=== PATIENT | female | born 1965 | race Caucasian/White ===

== ENCOUNTER 2022-12-16 14:25 | Emergency (ER) | payer OTHER, SELFPAY ==
[2022-12-16] VITALS (19 sets, daily range): BP systolic 118–140; BP diastolic 81–104; PULSE 82–111; RESP 12–26; TEMP 36.8; O2SAT 95–100; BMI 17.8
--- NOTE | 2022-12-16 14:41 | ECG_ITS ---
The [facility] Test Date: 2022-12-16 Pat Name: JEREMÍAS RIOS Department: Room: - Gender: Female [employer]icated [employer]: : 1965 Requested By: Order Number: [id number] Reading MD: KARIS CHUNG Measurements Intervals [place] Rate: 86 P: -30 OK: 124 QRS: 75 QRSD: 80 T: 58 QT: 384 QTc: 428 Interpretive Statements 1100 Sinus rhythm 9110 normal ECG No previous ECG available for comparison Electronically Signed On 12-17-2022 18:57:54 EDT by KARIS CHUNG
--- NOTE | 2022-12-16 14:41 | XR_ITS ---
The [address] [address] Patient Name: JEREMÍAS RIOS MRN: [id number] date: 1965 Sex: F Assigned Patient Location: ER Current Patient Location: ER Accession/Order Number: [id number] Exam Date: 12/16/2022 14:58 Report Date: 12/16/2022 15:35 At the request of: TIMO MENDEZ Procedure: XR chest 1V EXAMINATION: XR chest 1V HISTORY: Weakness COMPARISON: Portable chest 09/09/2021 TECHNIQUE: Portable chest FINDINGS: The lung parenchyma is free of consolidation or infiltrate. No pneumothorax or pleural effusion. The cardiac, mediastinal and hilar contours are normal. The visualized osseous structures exhibit no gross abnormality. XR/XR chest 1V IMPRESSION: No acute cardiopulmonary abnormality. Electronically authenticated by: REJI TAYLOR Date: 12/16/2022 15:35
--- NOTE | 2022-12-16 14:41 | CT_ITS ---
The [address] [address] Patient Name: JEREMÍAS RIOS MRN: [id number] date: 1965 Sex: F Assigned Patient Location: ER Current Patient Location: ER Accession/Order Number: [id number] Exam Date: 12/16/2022 15:00 Report Date: 12/16/2022 15:38 At the request of: TIMO MENDEZ Procedure: CT head/brain wo con CT head/brain wo con CLINICAL HISTORY: Seizure. COMPARISON: None Available. CT HEAD TECHNIQUE: Noncontrast axial CT images of the brain were obtained from the vertex through the skull base. Sagittal and coronal reconstructions. Bone and brain windows are provided for review. Dose reduction techniques were achieved by using automated exposure control and/or adjustment of mA and/or kV according to patient size and/or use of iterative reconstruction technique. CT HEAD FINDINGS: For patient age there is slightly greater than expected global volume loss especially frontal with slight ex vacuo prominence of the ventricles. No mass, midline shift, acute bleed, or extra-axial fluid collection. No CT evidence of acute large territorial infarction. Visualized paranasal sinuses are clear. Mastoid air cells are well aerated. The scalp, calvarium and orbital contents are free of disease. CT/CT head/brain wo con IMPRESSION: No acute process noncontrast head CT. Electronically authenticated by: HUYEN CHEW Date: 12/16/2022 15:38
--- NOTE | 2022-12-16 14:42 | ED_ITS ---
HPI - General Adult General Chief complaint: Urogenital-Female Stated complaint: POSS. UTI- MENON WHEN URINATING/BODY ACHES Time Seen by Provider: 12/16/22 14:36 Source: patient Mode of arrival: walk-in History of Present Illness HPI narrative: 57-year-old female presents for feeling bad. She stopped drinking alcohol two weeks ago and before that she was drinking a twelve pack of beer a day. Two weeks ago she states she had a withdrawal seizure, she's had them before. She hasn't had one since. No fever. She thinks she might have a urinary tract infection because she has dysuria. No gross hematuria. She's been tremorous and nauseous. Related Data Previous Rx's Medication Instructions Recorded cephalexin 500 mg capsule 500 mg PO TID 7 days #21 caps 12/16/22 lorazepam 1 mg tablet (Ativan) 1 mg PO Q8H PRN alcohol withdrawal 12/16/22 #20 tabs Allergies Allergy/AdvReac Type Severity Reaction Status Date / Time No Known Drug Allergies Allergy Verified 12/16/22 14:33 Review of Systems ROS Narrative A ten point review of systems is negative except as noted above. Exam Narrative Exam Narrative: Nurses note and vital signs reviewed and patient is not hypoxic. General: The patient appears in no apparent distress. Patient is resting comfortably on cart. Skin: Warm, dry, no pallor noted. There is no rash noted. Head: Normocephalic, atraumatic Eye: Normal conjunctiva, no drainage Ears, Nose, Mouth, and Throat: oral mucosa is moist. Nares patent. Cardiovascular: Regular Rate and Rhythm Respiratory: Patient is in no distress, no accessory muscle use, lungs are clear to auscultation, no wheezing, rales or rhonchi Back: non-tender GI: soft and nontender, no masses Musculoskeletal: The patient has no evidence of calf tenderness, no pitting edema, symmetrical pulses noted bilaterally Neurological: A&O x4, normal speech; she is tremorous Psychiatric: Cooperative Constitutional Vital Signs, click to edit/add: Last Vital Signs Temp 98.2 F 12/16/22 14:29 Pulse 90 12/16/22 16:00 Resp 20 12/16/22 16:00 BP 127/83 12/16/22 16:06 Pulse Ox 97 12/16/22 16:00 O2 Del Method Room Air 12/16/22 14:29 Course Vital Signs Vital signs: Vital Signs Temperature 98.2 F 12/16/22 14:29 Pulse Rate 111 H 12/16/22 14:29 Respiratory Rate 16 12/16/22 14:29 Blood Pressure 129/104 H 12/16/22 14:29 Pulse Oximetry 99 12/16/22 14:29 Oxygen Delivery Method Room Air 12/16/22 14:29 Temperature 98.2 F 12/16/22 14:29 Pulse Rate 90 12/16/22 16:00 Respiratory Rate 20 12/16/22 16:00 Blood Pressure 127/83 12/16/22 16:06 Pulse Oximetry 97 12/16/22 16:00 Oxygen Delivery Method Room Air 12/16/22 14:29 Medical Decision Making MDM Narrative Medical decision making narrative: The patient has mild alcohol withdrawal. She's been tremorous and was given IV Ativan and fluids and feels much better now. Her tremors are no longer present. She was also found to have mild urinary tract infection. Culture ordered as well as IV Rocephin and she'll be discharged home on Keflex. Findings are discussed thoroughly with the patient. At this point she does not require admission the hospital. Differential Diagnosis Differential Diagnosis: I'll call withdrawal, urinary tract infection, pyelonephritis, delirium Lab Data Lab results reviewed: Yes I reviewed the patient's lab results Labs: Lab Results 12/16/22 Range/Units 14:38 WBC 5.8 (4.0-11.0) 10^3/uL RBC 3.73 L (4.20-5.40) 10^6/uL Hgb 13.2 (12.0-16.0) g/dL Hct 39.0 (36.0-48.0) % MCV 104.6 H (81.0-99.0) fL MCH 35.4 H (26.7-34.0) pg MCHC 33.8 (29.9-35.2) g/dL RDW 13.1 (11.0-15.0) % Plt Count 159 (150-450) 10^3/uL MPV 11.2 (9.5-13.5) fL Neut % (Auto) 49.4 (43.0-75.0) % Lymph % (Auto) 32.4 (20.5-60.0) % [place] % (Auto) 15.9 H (1.7-12.0) % Eos % (Auto) 1.0 (0.9-7.0) % Baso % (Auto) 1.0 (0.2-2.0) % Neut # (Auto) 2.9 (1.4-6.5) 10^3/uL Lymph # (Auto) 1.9 (1.2-3.8) 10^3/uL [place] # (Auto) 0.9 H (0.3-0.8) 10^3/uL Eos # (Auto) 0.1 (0.0-0.7) 10^3/uL Baso # (Auto) 0.1 (0.0-0.1) 10^3/uL Abs Immat Gran (auto) 0.02 (0.00-0.03) 10^3/uL Imm/Tot Granulo (auto) 0.3 (0.0-0.5) % Sodium 136 (136-145) mmol/L Potassium 3.1 L (3.5-5.1) mmol/L Chloride 100 (98-107) mmol/L Carbon Dioxide 28.1 (21.0-32.0) mmol/L Anion Gap 11.0 BUN 3.0 L (7.0-18.0) mg/dL Creatinine 0.73 (0.55-1.02) mg/dL Est GFR ( Amer) >60 (>=60) Est GFR (Non-Af Amer) >60 (>=60) BUN/Creatinine Ratio 4.1 Glucose 104 (74-106) mg/dL Calcium 8.9 (8.5-10.1) mg/dL Total Bilirubin 1.2 H (0.2-1.0) mg/dL Direct Bilirubin 0.5 H (0.0-0.2) mg/dL AST 57 H (15-37) U/L ALT 58 (14-59) U/L Alkaline Phosphatase 104 (46-116) U/L Total Protein 7.2 (6.4-8.2) g/dL Albumin 3.4 (3.4-5.0) g/dL Globulin 3.8 g/dL Albumin/Globulin Ratio 0.9 Urine Color [place] A (YELLOW) Urine Clarity Slightly cloudy A (CLEAR) Urine pH Color interference A (5.0-9.0) Ur Specific [place] <=1.005 A (1.005-1.025) Urine Protein Color interference A (NEG/TRACE) mg/dL Urine Glucose (UA) Color interference A (NEGATIVE) mg/dL Urine Ketones Color interference A (NEGATIVE) mg/dL Urine Occult Blood Color interference A (NEGATIVE) Urine Nitrite Color interference A (NEGATIVE) Urine Bilirubin Color interference A (NEGATIVE) Urine Urobilinogen Color interference A (0.2-1.0) EU/dL Ur Leukocyte Esterase Color interference A (NEGATIVE) Urine RBC 2-5 A (0-2) #/HPF Urine WBC 10-20 A (NONE SEEN) #/HPF Ur Squamous Epith Cells None seen (NONE/RARE) #/LPF Urine Crystals None seen (None Seen) #/HPF Urine Bacteria Trace A (NONE SEEN) #/HPF Urine Casts None seen (NONE SEEN) #/LPF Urine Mucus None seen (NONE SEEN) Ur Culture Indicated? Yes Ethanol Quant <3 mg/dL Imaging Data CT scan - head: Radiologist's impression: Procedure: CT head/brain wo con CT head/brain wo con CLINICAL HISTORY: Seizure. COMPARISON: None Available. CT HEAD TECHNIQUE: Noncontrast axial CT images of the brain were obtained from the vertex through the skull base. Sagittal and coronal reconstructions. Bone and brain windows are provided for review. Dose reduction techniques were achieved by using automated exposure control and/or adjustment of mA and/or kV according to patient size and/or use of iterative reconstruction technique. CT HEAD FINDINGS: For patient age there is slightly greater than expected global volume loss especially frontal with slight ex vacuo prominence of the ventricles. No mass, midline shift, acute bleed, or extra-axial fluid collection. No CT evidence of acute large territorial infarction. Visualized paranasal sinuses are clear. Mastoid air cells are well aerated. The scalp, calvarium and orbital contents are free of disease. IMPRESSION: No acute process noncontrast head CT. Electronically authenticated by: HYUEN CHEW Date: 12/16/2022 15:38 ECG Data Attestation: I personally reviewed and interpreted this ECG as follows: (EKG on my interpretation shows normal sinus rhythm with a rate of 86.) Discharge Plan Discharge Chief Complaint: Urogenital-Female Clinical Impression: Urinary tract infection, Alcohol withdrawal Patient Disposition: Home, Self-Care Time of Disposition Decision: 16:37 Condition: Good Mode of Transportation: Private Vehicle Prescriptions / Home Meds: New cephalexin 500 mg capsule 500 mg PO TID 7 Days Qty: 21 0RF lorazepam [Ativan] 1 mg tablet 1 mg PO Q8H PRN (Reason: alcohol withdrawal) Qty: 20 0RF Instructions: Urinary Tract Infection in Women (ED), Alcohol Withdrawal (ED) Stand Alone Forms: Portal Instructions Referrals: Physician,Non-Staff, MD [Primary Care Provider] - 1 week
[2022-12-16 15:01] LABS: Basophils Absolute Auto 0.1 10^3/uL (0.0-0.1); Eosinophils Absolute Auto 0.1 10^3/uL (0.0-0.7); Hemoglobin 13.2 g/dL (12.0-16.0); Immature Granulocytes Abs Auto 0.02 10^3/uL (0.00-0.03); Immature Granulocytes Pct Auto 0.3 % (0.0-0.5); Lymphocytes Absolute Auto 1.9 10^3/uL (1.2-3.8); Lymphocytes Percent Auto 32.4 % (20.5-60.0); Mean Corpuscular HGB Conc 33.8 g/dL (29.9-35.2); Mean Corpuscular Hemoglobin 35.4 pg (26.7-34.0); Mean Corpuscular Volume 104.6 fL (81.0-99.0); Mean Platelet Volume 11.2 fL (9.5-13.5); Monocytes Absolute Auto 0.9 10^3/uL (0.3-0.8); Monocytes Percent Auto 15.9 % (1.7-12.0); Neutrophils Absolute Auto 2.9 10^3/uL (1.4-6.5); Neutrophils Percent Auto 49.4 % (43.0-75.0); Platelet Count 159 10^3/uL (150-450); Red Blood Count 3.73 10^6/uL (4.20-5.40); Red Cell Distribution Width 13.1 % (11.0-15.0); White Blood Count 5.8 10^3/uL (4.0-11.0)
[2022-12-16 15:10] LABS: BUN Creatinine Ratio 4.1; Calcium 8.9 mg/dL (8.5-10.1); Carbon Dioxide 28.1 mmol/L (21.0-32.0); Chloride 100 mmol/L (98-107); Estimated GFR (African America >60 (>=60); Estimated GFR (Non-African Ame >60 (>=60); Glucose 104 mg/dL (74-106); Potassium 3.1 mmol/L (3.5-5.1); Sodium 136 mmol/L (136-145)
[2022-12-16] MEDS: LORAZEPAM 2 MG/ML 1 ML VIAL 1 MG IV (15:11)
[2022-12-16 15:19] LABS: Alanine Aminotransferase 58 U/L (14-59); Albumin Globulin Ratio 0.9; Albumin Level 3.4 g/dL (3.4-5.0); Alkaline Phosphatase 104 U/L (46-116); Aspartate Amino Transferase 57 U/L (15-37); Bilirubin Direct 0.5 mg/dL (0.0-0.2); Bilirubin Total 1.2 mg/dL (0.2-1.0); Ethanol <3 mg/dL; Globulin 3.8 g/dL; Total Protein 7.2 g/dL (6.4-8.2)
[2022-12-16 15:20] LABS: Clarity Urine SLIGHTLY CLOUDY (CLEAR); Color Urine ORANGE (YELLOW)
[2022-12-16 15:21] LABS: Bacteria Urine TRACE #/HPF (NONE SEEN); Bilirubin Urine COLOR INTERFERENCE (NEGATIVE); Blood Urine COLOR INTERFERENCE (NEGATIVE); Cast Seen? NONE SEEN #/LPF (NONE SEEN); Crystals Seen? None Seen #/HPF (None Seen); Glucose Urine UA COLOR INTERFERENCE mg/dL (NEGATIVE); Ketones Urine COLOR INTERFERENCE mg/dL (NEGATIVE); Leukocyte Esterase Urine COLOR INTERFERENCE (NEGATIVE); Mucus Urine NONE SEEN (NONE SEEN); Nitrite Urine COLOR INTERFERENCE (NEGATIVE); Protein Urine COLOR INTERFERENCE mg/dL (NEG/TRACE); Specific Gravity Urine <=1.005 (1.005-1.025); Squamous Epithelial Cell Urine NONE SEEN #/LPF (NONE/RARE); Urobilinogen Urine COLOR INTERFERENCE EU/dL (0.2-1.0); pH Urine COLOR INTERFERENCE (5.0-9.0)
[2022-12-16 15:22] LABS: Urine Culture Indicated YES
[2022-12-16] MEDS: CEFTRIAXONE 1,000 MG in 0.9 % SODIUM CHLORIDE 50 ML 100 MG IV (16:37)
== END 2022-12-16 17:18 | disposition home or self-care (01) ==
PROVIDERS: Emergency Provider Emergency Medicine
DX: N39.0 Urinary tract infection, site not specified (principal); F10.239 Alcohol dependence with withdrawal, unspecified
CPT/HCPCS: 36415; 70450; 71045; 80048; 80076; 80320; 81001; 85025; 87086; 87150; 87186; 93005; 96365; 96375; 99285

== ENCOUNTER 2023-01-22 21:04 | Outpatient (REF) | payer OTHER, SELFPAY ==
[2023-01-26 13:09] LABS: Age Gdln ACOG Testing Note (.); HPV Aptima Negative (Negative); IGP, Aptima HPV, rfx 16/18,45 Note (.)
== END 2023-01-22 21:05 | disposition home or self-care (01) ==
LOC: LAB 21:04
PROVIDERS: PCP Nurse Practitioner Family; Visit Provider Obstetrics & Gynecology
DX: Z01.419 Encounter for gynecological examination (general) (routine) without abnormal findings (principal)
CPT/HCPCS: 87624; G0145

== ENCOUNTER 2023-01-23 06:54 | Outpatient (OUT) | payer OTHER, SELFPAY ==
[2023-01-23 07:15] LABS: Bilirubin Urine SMALL (NEGATIVE); Blood Urine TRACE-L (NEGATIVE); Color Urine YELLOW (YELLOW); Glucose Urine UA NEGATIVE (NEGATIVE); Ketones Urine TRACE mg/dL (NEGATIVE); Leukocyte Esterase Urine TRACE (NEGATIVE); Nitrite Urine NEGATIVE (NEGATIVE); Protein Urine NEGATIVE (NEG/TRACE); Specific Gravity Urine >=1.030 (1.005-1.025); pH Urine 5.5 (5.0-9.0)
[2023-01-23 07:16] LABS: Clarity Urine SLIGHTLY CLOUDY (CLEAR)
[2023-01-23 07:19] LABS: Basophils Percent Auto 0.7 % (0.2-2.0); Eosinophils Absolute Auto 0.2 10^3/uL (0.0-0.7); Eosinophils Percent Auto 3.2 % (0.9-7.0); Hematocrit 39.6 % (36.0-48.0); Hemoglobin 13.4 g/dL (12.0-16.0); Immature Granulocytes Abs Auto 0.01 10^3/uL (0.00-0.03); Immature Granulocytes Pct Auto 0.2 % (0.0-0.5); Lymphocytes Absolute Auto 2.1 10^3/uL (1.2-3.8); Lymphocytes Percent Auto 35.6 % (20.5-60.0); Mean Corpuscular HGB Conc 33.8 g/dL (29.9-35.2); Mean Corpuscular Hemoglobin 34.7 pg (26.7-34.0); Mean Corpuscular Volume 102.6 fL (81.0-99.0); Mean Platelet Volume 9.7 fL (9.5-13.5); Monocytes Absolute Auto 0.5 10^3/uL (0.3-0.8); Monocytes Percent Auto 9.1 % (1.7-12.0); Neutrophils Percent Auto 51.2 % (43.0-75.0); Platelet Count 135 10^3/uL (150-450); Red Blood Count 3.86 10^6/uL (4.20-5.40); Red Cell Distribution Width 13.8 % (11.0-15.0); White Blood Count 5.9 10^3/uL (4.0-11.0)
[2023-01-23 07:22] LABS: Bacteria Urine SMALL #/HPF (NONE SEEN); Cast Seen? NONE SEEN #/LPF (NONE SEEN); Crystals Seen? None Seen #/HPF (None Seen); Mucus Urine NONE SEEN (NONE SEEN); RBC Urine 0-2 #/HPF (0-2); Squamous Epithelial Cell Urine FEW #/LPF (NONE/RARE); WBC Urine 0-2 #/HPF (NONE SEEN)
[2023-01-23 07:50] LABS: Estimated Average Glucose 77 mg/dL; Glycohemoglobin A1C 4.3 % (4.5-6.2)
[2023-01-23 08:02] LABS: Alanine Aminotransferase 38 U/L (14-59); Albumin Globulin Ratio 0.8; Albumin Level 3.7 g/dL (3.4-5.0); Alkaline Phosphatase 132 U/L (46-116); Aspartate Amino Transferase 44 U/L (15-37); BUN Creatinine Ratio 9.5; Bilirubin Total 0.6 mg/dL (0.2-1.0); Calcium 9.6 mg/dL (8.5-10.1); Carbon Dioxide 27.9 mmol/L (21.0-32.0); Chloride 105 mmol/L (98-107); Chol HDL Ratio 3.4; Cholesterol 185 mg/dL (<=200); Estimated GFR (African America >60 (>=60); Estimated GFR (Non-African Ame >60 (>=60); Free T3 3.13 pg/mL (2.18-3.98); Globulin 4.7 g/dL; Glucose 122 mg/dL (74-106); HDL Cholesterol 55 mg/dL (40-60); Potassium 3.9 mmol/L (3.5-5.1); Sodium 141 mmol/L (136-145); Thyroid Stimulating Hormone 4.728 uIU/mL (0.358-3.740); Total Protein 8.4 g/dL (6.4-8.2); Triglycerides 90 mg/dL (<=150)
--- NOTE | 2023-01-23 17:43 | P.STRESS_ITS ---
Stress Test Stress Test Allergies Allergy/AdvReac Type Severity Reaction Status Date / Time No Known Drug Allergies Allergy Verified 12/16/22 14:33 Requesting physician: LOYD RANDOLPH Procedure: Exercise stress test General Information: Reason for Stress Test: Family history of ischemic heart disease Cardiac History and Risk Factors: 40 pack-year smoking. Father and brothers had MIs. Resting 12 - Lead Electrocardiogram: Rate & rhythm: Normal sinus at a rate of 99. [place]: Normal T-waves: Normal ST-segments: Normal Stress Test: Protocol: Facundo protocol was followed. Exercise capacity: Fair exercise capacity. Total exercise time of 4 minutes 45 seconds reached Facundo stage 2 at 2.5MPH, 12% grade, & 7 METs. Blood pressure: Initial: 108/68, Maximum: 140/88, Recovery: 120/74 Rate & rhythm: Patient remained in sinus rhythm during the exercise and recovery portions of the study.? The maximum heart rate was 157, which was 95% of the maximum predicted heart rate 165. Occasional PVCs were noted. ST-segments & T-waves: There were no T-wave changes and no ST-segment changes when compared to the baseline EKG. Patient response/symptoms: Patient complained of dyspnea which is not abnormal for her. Interpretation: Normal exercise stress test. No EKG abnormalities identified. Rhoades Treadmill score is 4.8, which is a moderate risk. Clinical correlation required.
[2023-01-24 10:11] LABS: Insulin 13.7 uIU/mL (2.6-24.9)
== END 2023-01-23 06:55 | disposition home or self-care (01) ==
LOC: CARD 06:54
PROVIDERS: PCP Nurse Practitioner Family; Visit Provider Nurse Practitioner Family
DX: R30.0 Dysuria (principal); Z82.49 Family history of ischemic heart disease and other diseases of the circulatory system; R10.13 Epigastric pain
CPT/HCPCS: 36415; 80053; 80061; 81001; 82306; 83036; 83525; 83540; 84436; 84443; 84481; 85025; 87086; 93017

== ENCOUNTER 2023-02-08 13:09 | Outpatient (OUT) | payer OTHER, SELFPAY ==
--- NOTE | 2023-02-08 | MM_ITS ---
Patient Name: JEREMÍAS RIOS MR#: [id number] : 1965 Exam Date: 02/08/2023 Ordering Doctor: DR Paul Johnson . RADIOLOGY REPORT PROCEDURE: MM TOMOSYNTHESIS SCREENING BI COMPARISON: None. INDICATIONS: breast cancer screening by mammogram z 12.31 Calculator Name NCI Breast Cancer Risk Assessment Tool 5 Year Breast Cancer Risk 0.80% Lifetime Breast Cancer Risk 5.50% Personal Breast Cancer No Personal Ovarian Cancer No Treatments None Family Cancers Mother with uterus cancer at age 45. LOCATION: The [facility] BREAST COMPOSITION: Scattered areas fibroglandular density. FINDINGS: DIAGNOSTIC CATEGORY 0--INCOMPLETE: NEED ADDITIONAL IMAGING EVALUATION. Scattered benign-appearing calcifications are present. Scattered benign-appearing lymph nodes are present. Scattered benign-appearing nodules are present. RIGHT BREAST: Partially circumscribed lobular 7.7 mm nodule 6 o'clock position, mid to posterior breast. Spot imaging and ultrasound follow-up recommended LEFT BREAST: Well-circumscribed round 4.7 mm nodule lower inner quadrant, anterior breast. Spot imaging and ultrasound follow-up recommended. RECOMMENDATIONS: ADDITIONAL MAMMOGRAPHIC VIEWS REQUIRED: BILATERAL BREASTS - spot compression ULTRASOUND: BILATERAL BREASTS PLEASE NOTE: A NORMAL MAMMOGRAM DOES NOT EXCLUDE THE POSSIBILITY OF BREAST CANCER. A CLINICALLY SUSPICIOUS PALPABLE LUMP SHOULD BE BIOPSIED. Dictated by: Manuelito Alford MD on 02/09/2023 at 08:34 Approved by: Manuelito Alford MD on 02/09/2023 at 08:36
--- NOTE | 2023-02-08 | XR_ITS ---
The [address] [address] Patient Name: JEREMÍAS RIOS MRN: [id number] date: 1965 Sex: F Assigned Patient Location: MAMMO Current Patient Location: LAB Accession/Order Number: [id number] Exam Date: 02/08/2023 13:30 Report Date: 02/08/2023 15:58 At the request of: HAFSA FLOR Procedure: XR DEXA axial skeleton EXAMINATION: XR DEXA axial skeleton, 02/08/2023 1:30 PM EST HISTORY: postmenopausal state z78.0 COMPARISON: None. TECHNIQUE: Dual-energy X-ray absorptiometry (DEXA) bone density study performed for the axial skeleton. HISTORY: postmenopausal state z78.0 FINDINGS: Bone mineral density AP spine L1-L4 measures 1.215 g/sq cm. T score 0.3. WHO classification: Normal. Lowest bone mineral density right femoral neck measures 0.835 g/sq cm. T score -1.5. WHO classification: Osteopenia XR/XR DEXA axial skeleton IMPRESSION: Osteopenia. Moderate fracture risk Electronically authenticated by: REJI GOSS Date: 02/08/2023 15:58
== END 2023-02-08 13:10 | disposition home or self-care (01) ==
LOC: MAMMO 13:09
PROVIDERS: PCP Nurse Practitioner Family; Visit Provider Obstetrics & Gynecology
DX: Z78.0 Asymptomatic menopausal state (principal); Z12.31 Encounter for screening mammogram for malignant neoplasm of breast; Z80.8 Family history of malignant neoplasm of other organs or systems; N63.15 Unspecified lump in the right breast, overlapping quadrants; N63.24 Unspecified lump in the left breast, lower inner quadrant; M85.80 Other specified disorders of bone density and structure, unspecified site
CPT/HCPCS: 77063; 77067; 77080

== ENCOUNTER 2023-02-08 13:49 | Outpatient (OUT) | payer OTHER, SELFPAY ==
[2023-02-08 14:17] LABS: Basophils Percent Auto 0.5 % (0.2-2.0); Eosinophils Absolute Auto 0.1 10^3/uL (0.0-0.7); Eosinophils Percent Auto 1.6 % (0.9-7.0); Hematocrit 38.3 % (36.0-48.0); Hemoglobin 12.3 g/dL (12.0-16.0); Immature Granulocytes Abs Auto 0.01 10^3/uL (0.00-0.03); Immature Granulocytes Pct Auto 0.2 % (0.0-0.5); Lymphocytes Absolute Auto 1.7 10^3/uL (1.2-3.8); Lymphocytes Percent Auto 29.9 % (20.5-60.0); Mean Corpuscular HGB Conc 32.1 g/dL (29.9-35.2); Mean Corpuscular Hemoglobin 33.2 pg (26.7-34.0); Mean Corpuscular Volume 103.2 fL (81.0-99.0); Monocytes Absolute Auto 0.6 10^3/uL (0.3-0.8); Monocytes Percent Auto 9.8 % (1.7-12.0); Neutrophils Absolute Auto 3.3 10^3/uL (1.4-6.5); Platelet Count 111 10^3/uL (150-450); Red Blood Count 3.71 10^6/uL (4.20-5.40); Red Cell Distribution Width 13.9 % (11.0-15.0); White Blood Count 5.7 10^3/uL (4.0-11.0)
[2023-02-08 14:37] LABS: Free T4 1.03 ng/dL (0.76-1.46)
[2023-02-08 14:41] LABS: Thyroid Stimulating Hormone 3.594 uIU/mL (0.358-3.740)
== END 2023-02-08 13:50 | disposition home or self-care (01) ==
LOC: LAB 13:50
PROVIDERS: PCP Nurse Practitioner Family; Visit Provider Nurse Practitioner Family
DX: R79.89 Other specified abnormal findings of blood chemistry (principal); D69.6 Thrombocytopenia, unspecified; Z78.0 Asymptomatic menopausal state; Z12.31 Encounter for screening mammogram for malignant neoplasm of breast; Z80.8 Family history of malignant neoplasm of other organs or systems; M85.80 Other specified disorders of bone density and structure, unspecified site; N63.24 Unspecified lump in the left breast, lower inner quadrant; N63.15 Unspecified lump in the right breast, overlapping quadrants
CPT/HCPCS: 36415; 77063; 77067; 77080; 84439; 84443; 85025

== ENCOUNTER 2023-03-20 12:43 | Outpatient (OUT) | payer OTHER, SELFPAY ==
[2023-03-20 14:50] LABS: Basophils Percent Auto 0.6 % (0.2-2.0); Eosinophils Absolute Auto 0.1 10^3/uL (0.0-0.7); Eosinophils Percent Auto 1.1 % (0.9-7.0); Hematocrit 40.3 % (36.0-48.0); Hemoglobin 13.2 g/dL (12.0-16.0); Immature Granulocytes Abs Auto 0.01 10^3/uL (0.00-0.03); Immature Granulocytes Pct Auto 0.2 % (0.0-0.5); Lymphocytes Absolute Auto 1.5 10^3/uL (1.2-3.8); Lymphocytes Percent Auto 31.3 % (20.5-60.0); Mean Corpuscular HGB Conc 32.8 g/dL (29.9-35.2); Mean Corpuscular Hemoglobin 33.1 pg (26.7-34.0); Mean Platelet Volume 10.4 fL (9.5-13.5); Monocytes Absolute Auto 0.5 10^3/uL (0.3-0.8); Monocytes Percent Auto 10.1 % (1.7-12.0); Neutrophils Absolute Auto 2.7 10^3/uL (1.4-6.5); Neutrophils Percent Auto 56.7 % (43.0-75.0); Platelet Count 97 10^3/uL (150-450); Red Blood Count 3.99 10^6/uL (4.20-5.40); White Blood Count 4.7 10^3/uL (4.0-11.0)
[2023-03-20 15:09] LABS: Free T4 0.92 ng/dL (0.76-1.46)
[2023-03-20 15:13] LABS: Thyroid Stimulating Hormone 2.669 uIU/mL (0.358-3.740)
== END 2023-03-20 12:44 | disposition home or self-care (01) ==
LOC: LAB 12:44
PROVIDERS: PCP Nurse Practitioner Family; Visit Provider Nurse Practitioner Family
DX: R79.89 Other specified abnormal findings of blood chemistry (principal); D69.6 Thrombocytopenia, unspecified
CPT/HCPCS: 36415; 84439; 84443; 85025

== ENCOUNTER 2023-03-20 12:58 | Outpatient (OUT) | payer OTHER, SELFPAY ==
--- NOTE | 2023-03-20 13:02 | US_ITS ---
Patient Name: JEREMÍAS RIOS MR#: [id number] : 1965 Exam Date: 03/20/2023 Ordering Doctor: DR Paul Johnson . RADIOLOGY REPORT PROCEDURE: MM DIAGNOSTIC MAMMO BI, 03/20/2023, 13:03 US BREAST BI LIMITED, 03/20/2023, 13:22 COMPARISON: MM TOMOSYNTHESIS SCREENING BI, 02/08/2023. INDICATIONS: mammogram abnormal R92.8 Calculator Name NCI Breast Cancer Risk Assessment Tool 5 Year Breast Cancer Risk 0.80% Lifetime Breast Cancer Risk 5.30% Personal Breast Cancer No Personal Ovarian Cancer No Treatments None Family Cancers Mother with uterus cancer at age 45. LOCATION: The [facility] BREAST COMPOSITION: Scattered areas fibroglandular density. FINDINGS: DIAGNOSTIC CATEGORY 3--PROBABLY BENIGN FINDING. THE FOLLOWING FINDING(S) HAS A HIGH PROBABILITY OF A BENIGN ETIOLOGY: RIGHT BREAST: Spot magnification views demonstrate persistence of the small partially circumscribed mass within lower midline breast. Ultrasound evaluation demonstrates a 7 x 4 x 4 mm lobular lesion with central fatty hilum at the 6 o'clock position 2.1 cm from the nipple suspected represent a lymph node. Follow-up mammography and ultrasound evaluation in 6 months is recommended to document stability and to help establish baseline. LEFT BREAST: Spot magnification views demonstrate persistence of a 5 mm partially circumscribed mass within the anterior breast 9 o'clock position. Ultrasound evaluation demonstrates a small mass versus lymph node at the 9 o'clock position 1.2 cm from the nipple, 4 x 3 x 2 millimeters. Follow-up mammography and ultrasound evaluation in 6 months is recommended. RECOMMENDATIONS: SHORT TERM FOLLOW-UP DIAGNOSTIC MAMMOGRAM BILATERAL BREASTS IN 6 MONTHS. FOLLOW-UP ULTRASOUND BILATERAL BREASTS IN 12 MONTHS. PLEASE NOTE: A NORMAL MAMMOGRAM DOES NOT EXCLUDE THE POSSIBILITY OF BREAST CANCER. A CLINICALLY SUSPICIOUS PALPABLE LUMP SHOULD BE BIOPSIED. Dictated by: Gabriel Abreu M.D. on 03/21/2023 at 09:16 Approved by: Gabriel Abreu M.D. on 03/21/2023 at 09:27
--- NOTE | 2023-03-20 13:20 | MM_ITS ---
Patient Name: JEREMÍAS RIOS MR#: [id number] : 1965 Exam Date: 03/20/2023 Ordering Doctor: DR Paul Johnson . RADIOLOGY REPORT PROCEDURE: MM DIAGNOSTIC MAMMO BI, 03/20/2023, 13:03 US BREAST BI LIMITED, 03/20/2023, 13:22 COMPARISON: MM TOMOSYNTHESIS SCREENING BI, 02/08/2023. INDICATIONS: mammogram abnormal R92.8 Calculator Name NCI Breast Cancer Risk Assessment Tool 5 Year Breast Cancer Risk 0.80% Lifetime Breast Cancer Risk 5.30% Personal Breast Cancer No Personal Ovarian Cancer No Treatments None Family Cancers Mother with uterus cancer at age 45. LOCATION: The [facility] BREAST COMPOSITION: Scattered areas fibroglandular density. FINDINGS: DIAGNOSTIC CATEGORY 3--PROBABLY BENIGN FINDING. THE FOLLOWING FINDING(S) HAS A HIGH PROBABILITY OF A BENIGN ETIOLOGY: RIGHT BREAST: Spot magnification views demonstrate persistence of the small partially circumscribed mass within lower midline breast. Ultrasound evaluation demonstrates a 7 x 4 x 4 mm lobular lesion with central fatty hilum at the 6 o'clock position 2.1 cm from the nipple suspected represent a lymph node. Follow-up mammography and ultrasound evaluation in 6 months is recommended to document stability and to help establish baseline. LEFT BREAST: Spot magnification views demonstrate persistence of a 5 mm partially circumscribed mass within the anterior breast 9 o'clock position. Ultrasound evaluation demonstrates a small mass versus lymph node at the 9 o'clock position 1.2 cm from the nipple, 4 x 3 x 2 millimeters. Follow-up mammography and ultrasound evaluation in 6 months is recommended. RECOMMENDATIONS: SHORT TERM FOLLOW-UP DIAGNOSTIC MAMMOGRAM BILATERAL BREASTS IN 6 MONTHS. FOLLOW-UP ULTRASOUND BILATERAL BREASTS IN 12 MONTHS. PLEASE NOTE: A NORMAL MAMMOGRAM DOES NOT EXCLUDE THE POSSIBILITY OF BREAST CANCER. A CLINICALLY SUSPICIOUS PALPABLE LUMP SHOULD BE BIOPSIED. Dictated by: Gabriel Abreu M.D. on 03/21/2023 at 09:16 Approved by: Gabriel Abreu M.D. on 03/21/2023 at 09:27
== END 2023-03-20 12:59 | disposition home or self-care (01) ==
LOC: MAMMO 12:58
PROVIDERS: PCP Nurse Practitioner Family; Visit Provider Obstetrics & Gynecology
DX: R79.89 Other specified abnormal findings of blood chemistry (principal); D69.6 Thrombocytopenia, unspecified; R92.8 Other abnormal and inconclusive findings on diagnostic imaging of breast; Z80.8 Family history of malignant neoplasm of other organs or systems
CPT/HCPCS: 36415; 76642; 77066; 84439; 84443; 85025

== ENCOUNTER 2023-04-17 15:05 | Emergency (ER) | payer OTHER, SELFPAY ==
[2023-04-17 15:10] VITALS: BP 140/100; PULSE 98; RESP 18; TEMP 36.6; O2SAT 99; BMI 18.3
--- OUTSIDE RECORDS SUMMARY | 2023-04-17 15:13 | XMS_ITS | CCD ---
Author Name Unknown Address [facility] [place] [address] Organization [facility] Care Team Providers Care Paralegal Legal Secretary Name Role Phone REQUEST, DR NONE LISTED Primary Care Unavaila lincoln MCDONNELL, DR CANALES Attending Unavailable KCEIA, DR CANALES Consulting Unavailable KECIA, DR CANALES Admitting Unavailable KERLINE LUCIO Consulting Unavailable REJI TAYLOR Consulting Unavailable Unavailable Primary Care Provider Unavailabl e Problems Problem Classification Problem Date Documented Da te Episodic/Chronic Alcohol-related disorders (1 source) Alcohol abuse with intoxication, unspecified; Translations: [ALCOHOL ABUSE WITH INTOXICATION UNS] Onset: 09-14-2021 Chronic E Codes: Unspecified (1 source) Blood alcohol level of 120-199 mg/100 ml; Translations: [BLOOD ALCOHOL LVL 120-199 MG/100 ML] Onset: 09-14-2021 Episodic Fluid and electrolyte disorders (1 source) Acidosis; Translations: [ACIDOSIS] Onset: 09-14-2021 Episodic Genitourinary symptoms and ill-defined conditions (1 source) Personal history of urinary (tract) infections; Translations: [PERS HX URINARY TRACT INFECTIONS] Onset: 09-14-2021 Episodic Other aftercare (1 source) 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; Translations: [OTH HALF-WAY CURRENT DRUG THERAPY] Onset: 09-14-2021 Episodic Other screening for suspected conditions (not mental disorders or infectious disease) (1 source) Other specified abnormal findings of blood chemistry; Translations: [OTH SPEC ABNORMAL FINDINGS BLD CHEM] Onset: 09-14-2021 Episodic Poisoning by other medications and drugs (1 source) Poisoning by unspecified narcotics, accidental (unintentional), initial encounter; Translations: [POISON UNS NARCOTIC ACC INITIAL ENC] Onset: 09-14-2021 Episodic Residual codes; unclassified (3 sources) Transient alteration of awareness; Translations: [TRANSIENT ALTERATION OF AWARENESS] Onset: 09-10-2021 Episodic Residual codes; unclassified (1 source) Acquired absence of other specified parts of digestive tract; Translations: [ACQ ABSENCE OTH PART DIGESTV TRACT] Onset: 09-14-2021 Episodic Substance-related disorders (1 source) Nicotine dependence, cigarettes, uncomplicated; Translations: [NICOTINE DEPEND CIGARETTES UNCOMP] Onset: 09-14-2021 Chronic Unclassified (1 source) CONTACT W/AND (SUSP) EXPOS COVID-19; Translations: [CONTACT W/AND (SUSP) EXPOS COVID-19] Onset: 09-14-2021 Results Test Name Value Interpretation Reference Range Facility Multiple labson 03-20-2023 [facility] ACETAMINOPHENon 09-10-2021 Acetaminophen [Mass/Vol] ug/mL Critically low 10.0-30.0 [facility] Comment on above: Performed By: #### P OCGLUC #### [facility] [address] [place] [address] Dr. John Golden BNPon 09-10-2021 Natriuretic peptide B (Bld) [Mass/Vol] 435.0 pg/mL Normal <=900.0 [facility] Comment on above: Performed By: #### C MP, CMADM, BNP #### [facility] [address] [address] [address] John Golden CARDIAC SHAVON 3-6on 2 CK [Catalytic activity/Vol] 40 U/L Normal 26-192 [facility] Comment on above: Performed By: #### P OCGLUC #### [facility] [address] [address] [address] John Golden CK.MB [Mass/Vol] 1.11 ng/mL Normal <=3.60 [facility] Comment on above: Performed By: #### P OCGLUC #### [facility] [address] [address] [address] John Golden HSTROP 22.0 pg/mL Normal 4.0-51.3 [facility] Comment on above: Result Comment: CUT- OFF POINTS HAVE BEEN ESTABLISHED BASED ON THE FOURTH UNIVERSAL DEFINITIONS OF MYOCARDIAL INFARCTION. THE UPPER REFERENCE LIMIT (URL) OF TROPONIN, DEFINED THE 99TH PERCENTILE OF cTnI DISTRIBUTION IN A REFERENCE POPULATION, HAS BEEN CONFIRMED THE DECISION THRESHOLD FOR DE DIAGNOSIS. Performed By: #### P OCGLUC #### [facility] [address] [place] [address] Dr. John Golden CARDIAC SHAVON ADMITon 022 CK [Catalytic activity/Vol] 57 U/L Normal 26-192 [facility] Comment on above: Performed By: #### C MP, CMADM, BNP #### [facility] [address] [place] [address] Dr. John Golden CK.MB [Mass/Vol] 1.07 ng/mL Normal <=3.60 [facility] Comment on above: Performed By: #### C MP, CMADM, BNP #### [facility] [address] [place] [address] Dr. John Golden HSTROP 16.7 pg/mL Normal 4.0-51.3 [facility] Comment on above: Result Comment: CUT- OFF POINTS HAVE BEEN ESTABLISHED BASED ON THE FOURTH UNIVERSAL DEFINITIONS OF MYOCARDIAL INFARCTION. THE UPPER REFERENCE LIMIT (URL) OF TROPONIN, DEFINED THE 99TH PERCENTILE OF cTnI DISTRIBUTION IN A REFERENCE POPULATION, HAS BEEN CONFIRMED THE DECISION THRESHOLD FOR DE DIAGNOSIS. Performed By: #### C MP, CMADM, BNP #### [facility] [address] [place] [address] Dr. John Golden ELENA 26 ng/mL Normal 9-82 [facility] Comment on above: Performed By: #### C MP, CMADM, BNP #### [facility] [address] [place] [address] Dr. John Golden CK [Catalytic activity/Vol] 31 U/L Normal 26-192 [facility] Comment on above: Performed By: #### P OCGLUC #### [facility] [address] [place] [address] Dr. John Golden CK.MB [Mass/Vol] 0.59 ng/mL Normal <=3.60 [facility] Comment on above: Performed By: #### P OCGLUC #### [facility] [address] [place] [address] Dr. John Golden HSTROP 7.0 pg/mL Normal 4.0-51.3 [facility] Comment on above: Result Comment: CUT- OFF POINTS HAVE BEEN ESTABLISHED BASED ON THE FOURTH UNIVERSAL DEFINITIONS OF MYOCARDIAL INFARCTION. THE UPPER REFERENCE LIMIT (URL) OF TROPONIN, DEFINED THE 99TH PERCENTILE OF cTnI DISTRIBUTION IN A REFERENCE POPULATION, HAS BEEN CONFIRMED THE DECISION THRESHOLD FOR DE DIAGNOSIS. Performed By: #### P OCGLUC #### [facility] [address] [place] [address] Dr. John Golden ELENA 32 ng/mL Normal 9-82 [facility] Comment on above: Performed By: #### P OCGLUC #### [facility] [address] [place] [address] Dr. John Golden CBC AUTO DIFFon 09-10-2021 BASO # 0.0 103/ul Normal 0.0-0.1 [facility] Comment on above: Performed By: #### P OCGLUC #### [facility] [address] [place] [address] Dr. John Golden Basophils/100 WBC (Bld) 0.5 % Normal 0.2-2.0 [facility] Comment on above: Performed By: #### P OCGLUC #### [facility] [address] [place] [address] Dr. John Golden EO # 0.0 103/ul Normal 0.0-0.7 [facility] Comment on above: Performed By: #### P OCGLUC #### [facility] [address] [place] [address] Dr. John Golden Eosinophils/100 WBC (Bld) 0.5 % Critically low 0.9-7.0 [facility] Comment on above: Performed By: #### P OCGLUC #### [facility] [address] [place] [address] Dr. John Golden Erythrocyte distribution width (RBC) [Ratio] 13.6 % Normal 11.0-15.0 [facility] Comment on above: Performed By: #### P OCGLUC #### [facility] [address] [place] [address] Dr. John Golden Hematocrit (Bld) [Volume fraction] 34.4 % Critically low 36.0-48.0 [facility] Comment on above: Performed By: #### P OCGLUC #### [facility] [address] [address] [address] John Golden Hemoglobin (Bld) [Mass/Vol] 11.4 g/dL Critically low 12.0-16.0 [facility] Comment on above: Result Comment: FLUI DS Performed By: #### P OCGLUC #### [facility] [address] [address] [address] John Golden IG # 0.02 10e3/ul Normal 0.00-0.03 [facility] Comment on above: Performed By: #### P OCGLUC #### [facility] [address] [address] [address] John Golden IG % 0.5 % Normal 0.0-0.5 [facility] Comment on above: Performed By: #### P OCGLUC #### [facility] [address] [address] [address] John Golden LYMPH # 1.6 103/ul Normal 1.2-3.8 [facility] Comment on above: Performed By: #### P OCGLUC #### [facility] [address] [address] [address] John Golden Lymphocytes/100 WBC (Bld) 37.9 % Normal 20.5-60.0 [facility] Comment on above: Performed By: #### P OCGLUC #### [facility] [address] [address] [address] John Golden MANUAL DIFF REQ NO Normal [facility] Comment on above: Performed By: #### P OCGLUC #### [facility] [address] [address] [address] John Golden MCH (RBC) [Entitic mass] 35.1 pg Critically high 26.7-34.0 [facility] Comment on above: Performed By: #### P OCGLUC #### [facility] [address] [place] [address] Dr. John Golden MCHC (RBC) [Mass/Vol] 33.1 g/dL Normal 29.9-35.2 [facility] Comment on above: Performed By: #### P OCGLUC #### [facility] [address] [address] [address] John Golden MCV (RBC) [Entitic vol] 105.8 fL Critically high 81.0-99.0 [facility] Comment on above: Performed By: #### P OCGLUC #### [facility] [address] [address] [address] John Golden MONO # 0.5 103/ul Normal 0.3-0.8 [facility] Comment on above: Performed By: #### P OCGLUC #### [facility] [address] [address] [address] John Golden Monocytes/100 WBC (Bld) 11.0 % Normal 1.7-12.0 [facility] Comment on above: Performed By: #### P OCGLUC #### [facility] [address] [address] [address] John Golden NEUT # 2.0 103/ul Normal 1.4-6.5 [facility] Comment on above: Performed By: #### P OCGLUC #### [facility] [address] [address] [address] John Golden Neutrophils/100 WBC (Bld) 49.6 % Normal 43.0-75.0 [facility] Comment on above: Performed By: #### P OCGLUC #### [facility] [address] [address] [address] John Golden Platelet mean volume (Bld) [Entitic vol] 9.7 fL Normal 9.5-13.5 [facility] Comment on above: Performed By: #### P OCGLUC #### [facility] [address] [address] [address] John Golden PLT 70 103/ul Critically low 150-450 [facility] Comment on above: Performed By: #### P OCGLUC #### [facility] [address] [address] [address] John Golden RBC 3.25 106/ul Critically low 4.20-5.40 [facility] Comment on above: Performed By: #### P OCGLUC #### [facility] [address] [address] [address] John Golden WBC 4.1 103/ul Normal 4.0-11.0 [facility] Comment on above: Performed By: #### P OCGLUC #### [facility] [address] [address] [address] John Golden BASO # 0.0 103/ul Normal 0.0-0.1 [facility] Comment on above: Performed By: #### C BC #### [facility] [address] [address] [address] John Golden Basophils/100 WBC (Bld) 0.4 % Normal 0.2-2.0 [facility] Comment on above: Performed By: #### C BC #### [facility] [address] [address] [address] John Golden EO # 0.0 103/ul Normal 0.0-0.7 [facility] Comment on above: Performed By: #### C BC #### [facility] [address] [address] [address] John Golden Eosinophils/100 WBC (Bld) 0.6 % Critically low 0.9-7.0 [facility] Comment on above: Performed By: #### C BC #### [facility] [address] [address] [address] John Golden Erythrocyte distribution width (RBC) [Ratio] 13.4 % Normal 11.0-15.0 [facility] Comment on above: Performed By: #### C BC #### [facility] [address] [address] [address] John Golden Hematocrit (Bld) [Volume fraction] 40.4 % Normal 36.0-48.0 [facility] Comment on above: Performed By: #### C BC #### [facility] [address] [address] [address] John Golden Hemoglobin (Bld) [Mass/Vol] 13.5 g/dL Normal 12.0-16.0 [facility] Comment on above: Performed By: #### C BC #### [facility] [address] [place] [address] Dr. John Golden IG # 0.02 10e3/ul Normal 0.00-0.03 [facility] Comment on above: Performed By: #### C BC #### [facility] [address] [place] [address] Dr. John Golden IG % 0.4 % Normal 0.0-0.5 [facility] Comment on above: Performed By: #### C BC #### [facility] [address] [place] [address] Dr. John Golden LYMPH # 1.3 103/ul Normal 1.2-3.8 [facility] Comment on above: Performed By: #### C BC #### [facility] [address] [place] [address] Dr. John Golden Lymphocytes/100 WBC (Bld) 26.9 % Normal 20.5-60.0 [facility] Comment on above: Performed By: #### C BC #### [facility] [address] [place] [address] Dr. John Golden MANUAL DIFF REQ NO Normal [facility] Comment on above: Performed By: #### C BC #### [facility] [address] [place] [address] Dr. John Golden MCH (RBC) [Entitic mass] 35.4 pg Critically high 26.7-34.0 [facility] Comment on above: Performed By: #### C BC #### [facility] [address] [place] [address] Dr. John Golden MCHC (RBC) [Mass/Vol] 33.4 g/dL Normal 29.9-35.2 [facility] Comment on above: Performed By: #### C BC #### [facility] [address] [place] [address] Dr. John Golden MCV (RBC) [Entitic vol] 106.0 fL Critically high 81.0-99.0 [facility] Comment on above: Performed By: #### C BC #### [facility] [address] [address] [address] John Golden MONO # 0.4 103/ul Normal 0.3-0.8 [facility] Comment on above: Performed By: #### C BC #### [facility] [address] [address] [address] John Golden Monocytes/100 WBC (Bld) 8.4 % Normal 1.7-12.0 [facility] Comment on above: Performed By: #### C BC #### [facility] [address] [address] [address] John Golden NEUT # 2.9 103/ul Normal 1.4-6.5 [facility] Comment on above: Performed By: #### C BC #### [facility] [address] [place] [address] Dr. John Golden Neutrophils/100 WBC (Bld) 63.3 % Normal 43.0-75.0 [facility] Comment on above: Performed By: #### C BC #### [facility] [address] [place] [address] Dr. John Golden Platelet mean volume (Bld) [Entitic vol] 9.7 fL Normal 9.5-13.5 [facility] Comment on above: Performed By: #### C BC #### [facility] [address] [place] [address] Dr. John Golden PLT 83 103/ul Critically low 150-450 [facility] Comment on above: Performed By: #### C BC #### [facility] [address] [place] [address] Dr. John Golden RBC 3.81 106/ul Critically low 4.20-5.[address] [facility] Comment on above: Performed By: #### C BC #### [facility] [address] [place] [address] Dr. John Golden WBC 4.6 103/ul Normal 4.0-11.0 [facility] Comment on above: Performed By: #### C BC #### [facility] [address] [place] [address] Dr. John Golden [facility] SARS-CoV-2 (COVID-19) RNA TOM+probe Ql (Unsp spec) Not detected Normal NOT DETECTED [facility] Comment on above: Result Comment: When diagnostic testing is negative, the possibility of a false negative should be considered in the context of a patient's recent exposures and the presence of clinical signs and symptoms consistent with SARS-CoV-2. This test is not yet approved or cleared by the [place] FDA. When there are no FDA-approved or cleared tests available, and other criteria are met, FDA can make tests available under an emergency access mechanism called an Emergency Use Authorization (EUA). The EUA for this test is supported by the [place] of Health and Human Service's declaration that circumstances exist to justify the emergency use of in vitro diagnostics for the detection and/or diagnosis of the virus that causes COVID-19. This EUA will remain in effect for the duration of the COVID-19 declaration justifying emergency of IVDs, unless it is terminated or revoked by the FDA (after which the test may no longer be used). Performed By: #### C VDTBH #### [facility] [address] [place] [address] Dr. John Golden DRUG SCREEN RAPID (URINE)on 09-10-2021 AMP Negative Normal NEGATIVE [facility] Comment on above: Performed By: #### D RUGRPD #### [facility] [address] [place] [address] Dr. John Golden BAR Negative Normal NEGATIVE [facility] Comment on above: Performed By: #### D RUGRPD #### [facility] [address] [address] [address] John Golden BUP Negative Normal NEGATIVE [facility] Comment on above: Performed By: #### D RUGRPD #### [facility] [address] [place] [address] Dr. John Golden BZO Negative Normal NEGATIVE [facility] Comment on above: Performed By: #### D RUGRPD #### [facility] [address] [place] [address] Dr. John Golden MANSI Negative Normal NEGATIVE [facility] Comment on above: Performed By: #### D RUGRPD #### [facility] [address] [place] [address] Dr. John Golden CUT-OFFS SEE BELOW Normal [facility] Comment on above: Result Comment: AMP (Amphetamine): 500ng/mL, BAR (Barbituates): 200 ng/mL, BZO (Benzodiazepines): 150 ng/mL, BUP (Buprenorphine): 10 ng/mL, MANSI (Cocaine): 150 ng/mL, mAMP (Methamphetamine): 500 ng/mL, MTD (Methadone): 200 ng/mL, OPI (Opiates): 100 ng/mL, OXY (Oxycodone): 100 ng/mL, PCP (Phencyclidine): 25 ng/mL, PPX (Propoxyphene): 300 ng/mL, THC (Cannabinoids): 50 ng/mL, TCA (Trycyclic Antidepressants): 300 ng/mL Performed By: #### D RUGRPD #### [facility] [address] [place] [address] Dr. John Golden DRUG CUT HEADER DRUG CLASS TEST SYSTEM CUT-OFF CONCENTRATIONS ARE FOLLOWS: Normal [facility] Comment on above: Performed By: #### D RUGRPD #### [facility] [address] [place] [address] Dr. John Golden mAMP Negative Normal NEGATIVE [facility] Comment on above: Performed By: #### D RUGRPD #### [facility] [address] [place] [address] Dr. John Golden MTD Negative Normal NEGATIVE [facility] Comment on above: Performed By: #### D RUGRPD #### [facility] [address] [place] [address] Dr. John Golden OPI Negative Normal NEGATIVE [facility] Comment on above: Performed By: #### D RUGRPD #### [facility] [address] [place] [address] Dr. John Golden OXY Negative Normal NEGATIVE [facility] Comment on above: Performed By: #### D RUGRPD #### [facility] [address] [place] [address] Dr. John Golden PCP Negative Normal NEGATIVE [facility] Comment on above: Performed By: #### D RUGRPD #### [facility] [address] [address] [address] John Golden PPX Negative Normal NEGATIVE [facility] Comment on above: Performed By: #### D RUGRPD #### [facility] [address] [address] [address] John Golden TCA Negative Normal NEGATIVE [facility] Comment on above: Performed By: #### D RUGRPD #### [facility] [address] [address] [address] John Golden THC Negative Normal NEGATIVE [facility] Comment on above: Performed By: #### D RUGRPD #### [facility] [address] [address] [address] John Golden ETHANOL (BLD ALC)on 09-11-19 ALC NOTE NOTE: 80 mg/dl is the legal limit for a blood alcohol level Normal [facility] Comment on above: Performed By: #### P OCGLUC #### [facility] [address] [address] [address] John Golden Ethanol [Mass/Vol] 135 mg/dL Normal [facility] Comment on above: Performed By: #### P OCGLUC #### [facility] [address] [address] [address] John Golden LACTATE/LACTIC ACIDon 2021 Lactate [Moles/Vol] 2.3 mmol/L Critically high 0.4-1.9 [facility] Comment on above: Performed By: #### L ACT #### [facility] [address] [address] [address] John Golden Lactate [Moles/Vol] 2.2 mmol/L Critically high 0.4-1.9 [facility] Comment on above: Performed By: #### P OCGLUC #### [facility] [address] [place] [address] Dr. John Golden Lactate [Moles/Vol] 5.3 mmol/L Critically high 0.4-1.9 [facility] Comment on above: Performed By: #### L ACT #### [facility] [address] [address] [address] John Golden PROF 14(COMP METB)on 022 Albumin [Mass/Vol] 3.0 g/dL Critically low 3.4-5.0 [facility] Comment on above: Performed By: #### C MP, CMADM, BNP #### [facility] [address] [address] [address] John Golden Albumin/Globulin [Mass ratio] 0.9 {ratio} Normal [facility] Comment on above: Performed By: #### C MP, CMADM, BNP #### [facility] [address] [place] [address] Dr. John Golden ALP [Catalytic activity/Vol] 88 U/L Normal 46-116 [facility] Comment on above: Performed By: #### C MP, CMADM, BNP #### [facility] [address] [address] [address] John Golden ALT [Catalytic activity/Vol] 76 U/L Critically high 14-59 [facility] Comment on above: Performed By: #### C MP, CMADM, BNP #### [facility] [address] [place] [address] Dr. John Golden Anion gap [Moles/Vol] 12.8 mmol/L Normal [facility] Comment on above: Performed By: #### C MP, CMADM, BNP #### [facility] [address] [place] [address] Dr. John Golden AST [Catalytic activity/Vol] 72 U/L Critically high 15-37 [facility] Comment on above: Performed By: #### C MP, CMADM, BNP #### [facility] [address] [place] [address] Dr. John Golden Bilirubin [Mass/Vol] 0.4 mg/dL Normal 0.2-1.0 [facility] Comment on above: Performed By: #### C MP, CMADM, BNP #### [facility] [address] [address] [address] John Golden Calcium [Mass/Vol] 7.3 mg/dL Critically low 8.5-10.1 [facility] Comment on above: Performed By: #### C MP, CMADM, BNP #### [facility] [address] [address] [address] John Golden Chloride [Moles/Vol] 109 mmol/L Critically high 98-107 [facility] Comment on above: Performed By: #### C MP, CMADM, BNP #### [facility] [address] [address] [address] John Golden CO2 [Moles/Vol] 23.5 mmol/L Normal 21.0-32.0 [facility] Comment on above: Performed By: #### C MP, CMADM, BNP #### [facility] [address] [place] [address] Dr. John Golden Creatinine [Mass/Vol] 0.52 mg/dL Critically low 0.55-1.02 [facility] Comment on above: Performed By: #### C MP, CMADM, BNP #### [facility] [address] [place] [address] Dr. John Golden EGFR-AF COLOMBIAN >60 Normal >=60 [facility] Comment on above: Performed By: #### C MP, CMADM, BNP #### [facility] [address] [place] [address] Dr. John Golden EGFR-NON AF COLOMBIAN >60 Normal >=60 [facility] Comment on above: Performed By: #### C MP, CMADM, BNP #### [facility] [address] [place] [address] Dr. John Golden Globulin (S) [Mass/Vol] 3.3 g/dL Normal [facility] Comment on above: Performed By: #### C MP, CMADM, BNP #### [facility] [address] [place] [address] Dr. John Golden Glucose [Mass/Vol] 109 mg/dL Critically high 74-106 [facility] Comment on above: Performed By: #### C MP, CMADM, BNP #### [facility] [address] [place] [address] Dr. John Golden Potassium [Moles/Vol] 4.3 mmol/L Normal 3.5-5.1 [facility] Comment on above: Performed By: #### C MP, CMADM, BNP #### [facility] [address] [place] [address] Dr. John Golden Protein [Mass/Vol] 6.3 g/dL Critically low 6.4-8.2 [facility] Comment on above: Performed By: #### C MP, CMADM, BNP #### [facility] [address] [place] [address] Dr. John Golden Sodium [Moles/Vol] 141 mmol/L Normal 136-145 [facility] Comment on above: Performed By: #### C MP, CMADM, BNP #### [facility] [address] [place] [address] Dr. John Golden Urea nitrogen [Mass/Vol] 4.0 mg/dL Critically low 7.0-18.0 [facility] Comment on above: Performed By: #### C MP, CMADM, BNP #### [facility] [address] [place] [address] Dr. John Golden Urea nitrogen/Creatinine [Mass ratio] 7.7 mg/mg Normal [facility] Comment on above: Performed By: #### C MP, CMADM, BNP #### [facility] [address] [place] [address] Dr. John Golden Albumin [Mass/Vol] 3.7 g/dL Normal 3.4-5.0 [facility] Comment on above: Performed By: #### P OCGLUC #### [facility] [address] [place] [address] Dr. John Golden Albumin/Globulin [Mass ratio] 0.9 {ratio} Normal [facility] Comment on above: Performed By: #### P OCGLUC #### [facility] [address] [place] [address] Dr. John Golden ALP [Catalytic activity/Vol] 124 U/L Critically high 46-116 [facility] Comment on above: Performed By: #### P OCGLUC #### [facility] [address] [address] [address] John Golden ALT [Catalytic activity/Vol] 94 U/L Critically high 14-59 [facility] Comment on above: Performed By: #### P OCGLUC #### [facility] [address] [address] [address] John Golden Anion gap [Moles/Vol] 15.5 mmol/L Normal [facility] Comment on above: Performed By: #### P OCGLUC #### [facility] [address] [address] [address] John Golden AST [Catalytic activity/Vol] 102 U/L Critically high 15-37 [facility] Comment on above: Performed By: #### P OCGLUC #### [facility] [address] [address] [address] John Golden Bilirubin [Mass/Vol] 0.6 mg/dL Normal 0.2-1.0 [facility] Comment on above: Performed By: #### P OCGLUC #### [facility] [address] [address] [address] John Golden Calcium [Mass/Vol] 8.5 mg/dL Normal 8.5-10.1 [facility] Comment on above: Performed By: #### P OCGLUC #### [facility] [address] [address] [address] John Golden Chloride [Moles/Vol] 103 mmol/L Normal 98-107 [facility] Comment on above: Performed By: #### P OCGLUC #### [facility] [address] [address] [address] John Golden CO2 [Moles/Vol] 23.5 mmol/L Normal 21.0-32.0 [facility] Comment on above: Performed By: #### P OCGLUC #### [facility] [address] [address] [address] John Golden Creatinine [Mass/Vol] 0.80 mg/dL Normal 0.55-1.02 [facility] Comment on above: Performed By: #### P OCGLUC #### [facility] [address] [address] [address] John Golden EGFR-AF COLOMBIAN >60 Normal >=60 [facility] Comment on above: Performed By: #### P OCGLUC #### [facility] [address] [address] [address] John Golden EGFR-NON AF COLOMBIAN >60 Normal >=60 [facility] Comment on above: Performed By: #### P OCGLUC #### [facility] [address] [address] [address] John Golden Globulin (S) [Mass/Vol] 3.9 g/dL Normal [facility] Comment on above: Performed By: #### P OCGLUC #### [facility] [address] [address] [address] John Golden Glucose [Mass/Vol] 155 mg/dL Critically high 74-106 [facility] Comment on above: Performed By: #### P OCGLUC #### [facility] [address] [address] [address] John Golden Potassium [Moles/Vol] 4.0 mmol/L Normal 3.5-5.1 [facility] Comment on above: Performed By: #### P OCGLUC #### [facility] [address] [address] [address] John Golden Protein [Mass/Vol] 7.6 g/dL Normal 6.4-8.2 [facility] Comment on above: Performed By: #### P OCGLUC #### [facility] [address] [address] [address] John Golden Sodium [Moles/Vol] 138 mmol/L Normal 136-145 [facility] Comment on above: Performed By: #### P OCGLUC #### [facility] [address] [address] [address] John Golden Urea nitrogen [Mass/Vol] 4.0 mg/dL Critically low 7.0-18.0 [facility] Comment on above: Performed By: #### P OCGLUC #### [facility] [address] [address] [address] John Golden Urea nitrogen/Creatinine [Mass ratio] 5.0 mg/mg Normal [facility] Comment on above: Performed By: #### P OCGLUC #### [facility] [address] [address] [address] John Golden SALICYLATEon 09-10-2021 SALICYLATE 4.8 mg/dL Normal <=19.9 [facility] Comment on above: Performed By: #### P OCGLUC #### [facility] [address] [address] [address] John Golden XR CHEST 1 Von 09-10-2021 XR CHEST 1 V EXAMINATION: XR CHEST 1 V HISTORY: Overdose COMPARISON: None. TECHNIQUE: Portable chest FINDINGS: The lung parenchyma is free of consolidation or infiltrate. No pneumothorax or pleural effusion. The cardiac, mediastinal and hilar contours are normal. The visualized osseous structures exhibit no gross abnormality. IMPRESSION: Normal chest x-ray Electronically authenticated by: REJI TAYLOR Date: 2021-09-09 23:14 Normal [facility] POINT OF CARE GLUCOSEon 08-24 Glucose [Mass/Vol] 143 mg/dL Critically high 74-106 [facility] Comment on above: Performed By: #### P OCGLUC #### [facility] [id number] John Golden Encounters Encounter Date Encounter Type Care Provider Facility Start: 03-28-2023 Chart abstracting Ch[place] Cohn MD Work Phone: [facility]ony Mejia [place] [facility] Start: 09-10-2021 End: 09-10-[address] NONE LISTED REQUEST Facility: Procedures Date Procedure Procedure Detail Performing Clinician Start: 03-20-2023 MULTIPLE LABS Not In Sy stem Ref Prov Plan of Treatment Date Care Activity Detail Author Start: 05-11-2023 End: 05-11-2023 Patient encounter procedure 05/11/2023 11:30 AM EST Office Visit Harmony Lopez [facility] - Medical Oncology [address] [place] [id number] Chico Cohn MD [address] [place] [address] [facility] Me[facility] - [facility] On[facility] Start: 11-24-2022 Influenza vaccination Influenza Vaccine [facility] Start: 2017 Administration of varicella zoster vaccine Zoster (Shingles) Vaccine (1 of 2) [facility] Start: 02-20-1988 Screening for malignant neoplasm of cervix Pap Smear [facility] Start: 1986 DTaP,Tdap and Td Vaccines (1 - Tdap) DTaP,Tdap and Td Vaccines (1 - Tdap) [facility] Start: 1985 Adult BMI Screening Adult BMI Screening [facility] Start: 1979 Depression Screening Depression Screening [facility] Start: 1979 Tobacco Screening Tobacco Screening [facility] Payers Date Payer Category Payer Unknown [id number] 1957 Unknown [id number] Social History Date Type Detail Facility Tobacco smoking stat [facility] Tobacco smoking consumption unknown [facility] Start: 09-04-2018 History of Social function [facility] Start: 09-04-2018 Housing Instability [facility] Housing Instability Unknown [facility] Start: 1967 Sex Assigned At Not on file P [facility] Instructions Note Date & Type Note Facility Instructions Not on filedocumented in this en counter [facility] Summary Purpose Family History No Family History Records Found Advance Directives No Advanced Directives Records Found Additional Source Comments INFORMATION SOURCE (unrecogn ized section and content) DATE CREATED AUTHOR 09/15/2021 [facility] FOR RECORDS PERTAINING TO PATIENTS WHO ARE OR HAVE BEEN ENROLLED IN A CHEMICAL DEPENDENCY/SUBSTANCEABUSE PROGRAM, SOME INFORMATION MAY BE OMITTED. This clinical summary was aggregated from multiple sources. Caution should be exercised in using it in the provision of clinical care. This summary normalizes information from multiple sources, and as a consequence, information in this document may materially change the coding, format and clinical context of patient data. In addition, data may be omitted in some cases. CLINICAL DECISIONS SHOULD BE BASED ON THE PRIMARY CLINICAL RECORDS. [facility] provides no warranty or guarantee of the accuracy or completeness of information in this document.
--- NOTE | 2023-04-17 15:30 | ED_ITS ---
HPI - Dental/Oral General Chief complaint: Dental/Oral Stated complaint: TOOTH PAIN Time Seen by Provider: 04/17/23 15:20 Source: patient Mode of arrival: walk-in Limitations: no limitations History of Present Illness HPI Narrative: Patient is a 58-year-old female presents to the emergency department for the evaluation of pain in tooth #32 for the last month. She states she has a history of alcohol withdrawal seizures which caused her to break multiple teeth in her mouth. She is awaiting an appointment with a dentist, she does not have one locally. She states she is having increasing pain to the right jaw. She denies any fevers, vomiting. Related Data Home Medications Medication Instructions Recorded Confirmed cholecalciferol (vitamin D3) 50 50 mcg PO DAILY 04/17/23 04/17/23 mcg (2,000 unit) capsule omeprazole 40 mg capsule,delayed 40 mg PO DAILY 04/17/23 04/17/23 release Previous Rx's Medication Instructions Recorded amoxicillin 500 mg capsule 500 mg PO TID 10 days #30 caps 04/17/23 nabumetone 750 mg tablet 750 mg PO BID PRN pain #10 tabs 04/17/23 ondansetron 4 mg disintegrating 4 mg PO Q6H PRN nausea and 04/17/23 tablet vomiting #12 tabs Allergies Allergy/AdvReac Type Severity Reaction Status Date / Time No Known Drug Allergies Allergy Verified 12/16/22 14:33 Review of Systems ROS Constitutional Denies: fever or chills Ears, nose, mouth, and throat Denies: throat pain or nasal congestion Respiratory Denies: shortness of breath Gastrointestinal Denies: nausea or vomiting Musculoskeletal Denies: back pain or neck pain Integumentary/Breast Denies: rash Neurological Reports: headache PFSH PFSH Social History Smoking status: Current every day smoker Exam Narrative Exam Narrative: Gen.: Awake, alert, in no distress Head: Normocephalic, atraumatic ENT: Moist mucous membranes, Generally poor dentition with multiple dental caries and tenderness over tooth #32. No visible abscess. No redness or swelling under the tongue. No trismus or drooling. Right TM is clear. No mandibular or maxillary swelling. Respiratory: No respiratory distress Extremities: Moves extremities equally Psych: Normal mood and affect Neuro: No focal neuro deficit Skin: Warm, dry, intact Constitutional Vital Signs, click to edit/add: Last Vital Signs Temp 98 F 04/17/23 15:10 Pulse 98 H 04/17/23 15:10 Resp 18 04/17/23 15:10 BP 140/100 H 04/17/23 15:10 Pulse Ox 99 04/17/23 15:10 O2 Del Method Room Air 04/17/23 15:10 Course Vital Signs Vital signs: Vital Signs Temperature 98 F 04/17/23 15:10 Pulse Rate 98 H 04/17/23 15:10 Respiratory Rate 18 04/17/23 15:10 Blood Pressure 140/100 H 04/17/23 15:10 Pulse Oximetry 99 04/17/23 15:10 Oxygen Delivery Method Room Air 04/17/23 15:10 Temperature 98 F 04/17/23 15:10 Pulse Rate 98 H 04/17/23 15:10 Respiratory Rate 18 04/17/23 15:10 Blood Pressure 140/100 H 04/17/23 15:10 Pulse Oximetry 99 04/17/23 15:10 Oxygen Delivery Method Room Air 04/17/23 15:10 MDM - Dental/Oral MDM Narrative Medical decision making narrative: Patient will be treated with antibiotics, topical analgesia and NSAIDs. Follow- up with dentist, resources provided. Return to the ER if symptoms change or worsen. Medical Records Attestation: I reviewed the patient's medical records. Discharge Plan Discharge Chief Complaint: Dental/Oral Clinical Impression: Dental caries, Toothache Patient Disposition: Home, Self-Care Time of Disposition Decision: 15:32 Condition: Good Prescriptions / Home Meds: New amoxicillin 500 mg capsule 500 mg PO TID 10 Days Qty: 30 0RF nabumetone 750 mg tablet 750 mg PO BID PRN (Reason: pain) Qty: 10 0RF Rx Instructions: Take with food ondansetron 4 mg tablet,disintegrating 4 mg PO Q6H PRN (Reason: nausea and vomiting) Qty: 12 0RF No Action omeprazole 40 mg capsule,delayed release(DR/EC) 40 mg PO DAILY cholecalciferol (vitamin D3) 50 mcg (2,000 unit) capsule 50 mcg PO DAILY Instructions: Toothache (ED) Stand Alone Forms: Portal Instructions Referrals: LOYD RANDOLPH [Primary Care Provider] - 1 week Discharge Date/Time: 04/17/23 15:47
[2023-04-17] MEDS: BENZOCAINE 30 ML, lidocaine HCL 15 ML MM (15:45)
== END 2023-04-17 15:47 | disposition home or self-care (01) ==
PROVIDERS: Emergency Provider Emergency Medicine; PCP Nurse Practitioner Family
DX: K02.9 Dental caries, unspecified (principal); K08.89 Other specified disorders of teeth and supporting structures; Z79.899 Other long term (current) drug therapy; F17.210 Nicotine dependence, cigarettes, uncomplicated
CPT/HCPCS: 99283

== ENCOUNTER 2023-05-11 12:42 | Outpatient (OUT) | payer OTHER, SELFPAY ==
--- OUTSIDE RECORDS SUMMARY | 2023-05-11 12:49 | XMS_ITS | CCD ---
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 John Golden BNPon 09-10-2021 Natriuretic peptide B (Bld) [Mass/Vol] 435.0 pg/mL Normal <=900.0 [facility] Comment on above: Performed By: #### C MP, CMADM, BNP #### [facility] [address] [address] [address] John Golden CARDIAC SHAVON 3-6on 2 CK [Catalytic activity/Vol] 40 U/L Normal 26-192 [facility] Comment on above: Performed By: #### P OCGLUC #### [facility] [address] [address] [address] John Golden CK.MB [Mass/Vol] 1.11 ng/mL Normal <=3.60 [facility] Comment on above: Performed By: #### P OCGLUC #### [facility] [address] [address] [address] John Golden HSTROP 22.0 pg/mL Normal 4.0-51.3 [facility] Comment on above: Result Comment: CUT- OFF POINTS HAVE BEEN ESTABLISHED BASED ON THE FOURTH UNIVERSAL DEFINITIONS OF MYOCARDIAL INFARCTION. THE UPPER REFERENCE LIMIT (URL) OF TROPONIN, DEFINED THE 99TH PERCENTILE OF cTnI DISTRIBUTION IN A REFERENCE POPULATION, HAS BEEN CONFIRMED THE DECISION THRESHOLD FOR [place] DIAGNOSIS. Performed By: #### P OCGLUC #### [facility] [address] [place] [address] Dr. John Golden CARDIAC SHAVON ADMITon 022 CK [Catalytic activity/Vol] 57 U/L Normal 26-192 [facility] Comment on above: Performed By: #### C MP, CMADM, BNP #### [facility] [address] [place] [address] Dr. John Golden CK.MB [Mass/Vol] 1.07 ng/mL Normal <=3.60 [facility] Comment on above: Performed By: #### C MP, CMADM, BNP #### [facility] [address] [place] [address] Dr. John Golden HSTROP 16.7 pg/mL Normal 4.0-51.3 [facility] Comment on above: Result Comment: CUT- OFF POINTS HAVE BEEN ESTABLISHED BASED ON THE FOURTH UNIVERSAL DEFINITIONS OF MYOCARDIAL INFARCTION. THE UPPER REFERENCE LIMIT (URL) OF TROPONIN, DEFINED THE 99TH PERCENTILE OF cTnI DISTRIBUTION IN A REFERENCE POPULATION, HAS BEEN CONFIRMED THE DECISION THRESHOLD FOR WI DIAGNOSIS. Performed By: #### C MP, CMADM, BNP #### [facility] [address] [place] [address] Dr. John Golden ELENA 26 ng/mL Normal 9-82 [facility] Comment on above: Performed By: #### C MP, CMADM, BNP #### [facility] [address] [place] [address] Dr. John Golden CK [Catalytic activity/Vol] 31 U/L Normal 26-192 [facility] Comment on above: Performed By: #### P OCGLUC #### [facility] [address] [place] [address] Dr. John Golden CK.MB [Mass/Vol] 0.59 ng/mL Normal <=3.60 [facility] Comment on above: Performed By: #### P OCGLUC #### [facility] [address] [place] [address] Dr. John Golden HSTROP 7.0 pg/mL Normal 4.0-51.3 [facility] Comment on above: Result Comment: CUT- OFF POINTS HAVE BEEN ESTABLISHED BASED ON THE FOURTH UNIVERSAL DEFINITIONS OF MYOCARDIAL INFARCTION. THE UPPER REFERENCE LIMIT (URL) OF TROPONIN, DEFINED THE 99TH PERCENTILE OF cTnI DISTRIBUTION IN A REFERENCE POPULATION, HAS BEEN CONFIRMED THE DECISION THRESHOLD FOR WI DIAGNOSIS. Performed By: #### P OCGLUC #### [facility] [address] [place] [address] Dr. John Golden ELENA 32 ng/mL Normal 9-82 [facility] Comment on above: Performed By: #### P OCGLUC #### [facility] [address] [place] [address] Dr. John Golden CBC AUTO DIFFon 09-10-2021 BASO # 0.0 103/ul Normal 0.0-0.1 [facility] Comment on above: Performed By: #### P OCGLUC #### [facility] [address] [place] [address] Dr. John Golden Basophils/100 WBC (Bld) 0.5 % Normal 0.2-2.0 [facility] Comment on above: Performed By: #### P OCGLUC #### [facility] [address] [place] [address] Dr. John Golden EO # 0.0 103/ul Normal 0.0-0.7 [facility] Comment on above: Performed By: #### P OCGLUC #### [facility] [address] [place] [address] Dr. John Golden Eosinophils/100 WBC (Bld) 0.5 % Critically low 0.9-7.0 [facility] Comment on above: Performed By: #### P OCGLUC #### [facility] [address] [place] [address] Dr. John Golden Erythrocyte distribution width (RBC) [Ratio] 13.6 % Normal 11.0-15.0 [facility] Comment on above: Performed By: #### P OCGLUC #### [facility] [address] [place] [address] Dr. John Golden Hematocrit (Bld) [Volume fraction] 34.4 % Critically low 36.0-48.0 [facility] Comment on above: Performed By: #### P OCGLUC #### [facility] [address] [address] [address] John Golden Hemoglobin (Bld) [Mass/Vol] 11.4 g/dL Critically low 12.0-16.0 [facility] Comment on above: Result Comment: FLUI DS Performed By: #### P OCGLUC #### [facility] [address] [address] [address] John Golden IG # 0.02 10e3/ul Normal 0.00-0.03 [facility] Comment on above: Performed By: #### P OCGLUC #### [facility] [address] [address] [address] John Golden IG % 0.5 % Normal 0.0-0.5 [facility] Comment on above: Performed By: #### P OCGLUC #### [facility] [address] [address] [address] John Golden LYMPH # 1.6 103/ul Normal 1.2-3.8 [facility] Comment on above: Performed By: #### P OCGLUC #### [facility] [address] [address] [address] John Golden Lymphocytes/100 WBC (Bld) 37.9 % Normal 20.5-60.0 [facility] Comment on above: Performed By: #### P OCGLUC #### [facility] [address] [address] [address] John Golden MANUAL DIFF REQ NO Normal [facility] Comment on above: Performed By: #### P OCGLUC #### [facility] [address] [address] [address] John Golden MCH (RBC) [Entitic mass] 35.1 pg Critically high 26.7-34.0 [facility] Comment on above: Performed By: #### P OCGLUC #### [facility] [address] [place] [address] Dr. John Golden MCHC (RBC) [Mass/Vol] 33.1 g/dL Normal 29.9-35.2 [facility] Comment on above: Performed By: #### P OCGLUC #### [facility] [address] [address] [address] John Golden MCV (RBC) [Entitic vol] 105.8 fL Critically high 81.0-99.0 [facility] Comment on above: Performed By: #### P OCGLUC #### [facility] [address] [address] [address] John Golden MONO # 0.5 103/ul Normal 0.3-0.8 [facility] Comment on above: Performed By: #### P OCGLUC #### [facility] [address] [address] [address] John Golden Monocytes/100 WBC (Bld) 11.0 % Normal 1.7-12.0 [facility] Comment on above: Performed By: #### P OCGLUC #### [facility] [address] [address] [address] John Golden NEUT # 2.0 103/ul Normal 1.4-6.5 [facility] Comment on above: Performed By: #### P OCGLUC #### [facility] [address] [address] [address] John Golden Neutrophils/100 WBC (Bld) 49.6 % Normal 43.0-75.0 [facility] Comment on above: Performed By: #### P OCGLUC #### [facility] [address] [address] [address] John Golden Platelet mean volume (Bld) [Entitic vol] 9.7 fL Normal 9.5-13.5 [facility] Comment on above: Performed By: #### P OCGLUC #### [facility] [address] [address] [address] John Golden PLT 70 103/ul Critically low 150-450 [facility] Comment on above: Performed By: #### P OCGLUC #### [facility] [address] [address] [address] John Golden RBC 3.25 106/ul Critically low 4.20-5.40 [facility] Comment on above: Performed By: #### P OCGLUC #### [facility] [address] [address] [address] John Golden WBC 4.1 103/ul Normal 4.0-11.0 [facility] Comment on above: Performed By: #### P OCGLUC #### [facility] [address] [address] [address] John Golden BASO # 0.0 103/ul Normal 0.0-0.1 [facility] Comment on above: Performed By: #### C BC #### [facility] [address] [address] [address] John Golden Basophils/100 WBC (Bld) 0.4 % Normal 0.2-2.0 [facility] Comment on above: Performed By: #### C BC #### [facility] [address] [address] [address] John Golden EO # 0.0 103/ul Normal 0.0-0.7 [facility] Comment on above: Performed By: #### C BC #### [facility] [address] [address] [address] John Golden Eosinophils/100 WBC (Bld) 0.6 % Critically low 0.9-7.0 [facility] Comment on above: Performed By: #### C BC #### [facility] [address] [address] [address] John Golden Erythrocyte distribution width (RBC) [Ratio] 13.4 % Normal 11.0-15.0 [facility] Comment on above: Performed By: #### C BC #### [facility] [address] [address] [address] John Golden Hematocrit (Bld) [Volume fraction] 40.4 % Normal 36.0-48.0 [facility] Comment on above: Performed By: #### C BC #### [facility] [address] [address] [address] John Golden Hemoglobin (Bld) [Mass/Vol] 13.5 g/dL Normal 12.0-16.0 [facility] Comment on above: Performed By: #### C BC #### [facility] [address] [place] [address] Dr. John Golden IG # 0.02 10e3/ul Normal 0.00-0.03 [facility] Comment on above: Performed By: #### C BC #### [facility] [address] [place] [address] Dr. John Golden IG % 0.4 % Normal 0.0-0.5 [facility] Comment on above: Performed By: #### C BC #### [facility] [address] [place] [address] Dr. John Golden LYMPH # 1.3 103/ul Normal 1.2-3.8 [facility] Comment on above: Performed By: #### C BC #### [facility] [address] [place] [address] Dr. John Golden Lymphocytes/100 WBC (Bld) 26.9 % Normal 20.5-60.0 [facility] Comment on above: Performed By: #### C BC #### [facility] [address] [place] [address] Dr. John Golden MANUAL DIFF REQ NO Normal [facility] Comment on above: Performed By: #### C BC #### [facility] [address] [place] [address] Dr. John Golden MCH (RBC) [Entitic mass] 35.4 pg Critically high 26.7-34.0 [facility] Comment on above: Performed By: #### C BC #### [facility] [address] [place] [address] Dr. John Golden MCHC (RBC) [Mass/Vol] 33.4 g/dL Normal 29.9-35.2 [facility] Comment on above: Performed By: #### C BC #### [facility] [address] [place] [address] Dr. John Golden MCV (RBC) [Entitic vol] 106.0 fL Critically high 81.0-99.0 [facility] Comment on above: Performed By: #### C BC #### [facility] [address] [address] [address] John Golden MONO # 0.4 103/ul Normal 0.3-0.8 [facility] Comment on above: Performed By: #### C BC #### [facility] [address] [address] [address] John Golden Monocytes/100 WBC (Bld) 8.4 % Normal 1.7-12.0 [facility] Comment on above: Performed By: #### C BC #### [facility] [address] [address] [address] John Golden NEUT # 2.9 103/ul Normal 1.4-6.5 [facility] Comment on above: Performed By: #### C BC #### [facility] [address] [place] [address] Dr. John Golden Neutrophils/100 WBC (Bld) 63.3 % Normal 43.0-75.0 [facility] Comment on above: Performed By: #### C BC #### [facility] [address] [place] [address] Dr. John Golden Platelet mean volume (Bld) [Entitic vol] 9.7 fL Normal 9.5-13.5 [facility] Comment on above: Performed By: #### C BC #### [facility] [address] [place] [address] Dr. John Golden PLT 83 103/ul Critically low 150-450 [facility] Comment on above: Performed By: #### C BC #### [facility] [address] [place] [address] Dr. John Golden RBC 3.81 106/ul Critically low 4.20-5.40 [facility] Comment on above: Performed By: #### C BC #### [facility] [address] [place] [address] Dr. John Golden WBC 4.6 103/ul Normal 4.0-11.0 [facility] Comment on above: Performed By: #### C BC #### [facility] [address] [place] [address] Dr. John Golden [facility] SARS-CoV-2 (COVID-19) RNA TOM+probe Ql (Unsp spec) Not detected Normal NOT DETECTED [facility] Comment on above: Result Comment: [...] for this test is supported by the Airport Operations Specialist of Health and Human Service's declaration that [...] used). Performed By: #### C VDTBH #### [facility] [address] [place] [address] Dr. John Golden DRUG SCREEN RAPID (URINE)on 09-10-2021 AMP Negative Normal NEGATIVE [facility] Comment on above: Performed By: #### D RUGRPD #### [facility] [address] [place] [address] Dr. John Golden BAR Negative Normal NEGATIVE [facility] Comment on above: Performed By: #### D RUGRPD #### [facility] [address] [address] [address] John Golden BUP Negative Normal NEGATIVE [facility] Comment on above: Performed By: #### D RUGRPD #### [facility] [address] [place] [address] Dr. John Golden BZO Negative Normal NEGATIVE [facility] Comment on above: Performed By: #### D RUGRPD #### [facility] [address] [place] [address] Dr. John Golden MANSI Negative Normal NEGATIVE [facility] Comment on above: Performed By: #### D RUGRPD #### [facility] [address] [place] [address] Dr. John Golden CUT-OFFS SEE BELOW Normal [facility] Comment on above: Result Comment: [...] ng/mL Performed By: #### D RUGRPD #### [facility] [address] [place] [address] Dr. John Golden DRUG CUT HEADER DRUG CLASS TEST SYSTEM CUT-OFF CONCENTRATIONS ARE FOLLOWS: Normal [facility] Comment on above: Performed By: #### D RUGRPD #### [facility] [address] [place] [address] Dr. John Golden mAMP Negative Normal NEGATIVE [facility] Comment on above: Performed By: #### D RUGRPD #### [facility] [address] [place] [address] Dr. John Golden MTD Negative Normal NEGATIVE [facility] Comment on above: Performed By: #### D RUGRPD #### [facility] [address] [place] [address] Dr. John Golden OPI Negative Normal NEGATIVE [facility] Comment on above: Performed By: #### D RUGRPD #### [facility] [address] [place] [address] Dr. John Golden OXY Negative Normal NEGATIVE [facility] Comment on above: Performed By: #### D RUGRPD #### [facility] [address] [place] [address] Dr. John Golden PCP Negative Normal NEGATIVE [facility] Comment on above: Performed By: #### D RUGRPD #### [facility] [address] [address] [address] John Golden PPX Negative Normal NEGATIVE [facility] Comment on above: Performed By: #### D RUGRPD #### [facility] [address] [address] [address] John Golden TCA Negative Normal NEGATIVE [facility] Comment on above: Performed By: #### D RUGRPD #### [facility] [address] [address] [address] John Golden THC Negative Normal NEGATIVE [facility] Comment on above: Performed By: #### D RUGRPD #### [facility] [address] [address] [address] John Golden ETHANOL (BLD AL[facility])on 09-11-19 [facility] NOTE NOTE: 80 mg/dl is the legal limit for a blood alcohol level Normal [facility] Comment on above: Performed By: #### P OCGLUC #### [facility] [address] [address] [address] John Golden Ethanol [Mass/Vol] 135 mg/dL Normal [facility] Comment on above: Performed By: #### P OCGLUC #### [facility] [address] [address] [address] John Golden LACTATE/LACTIC ACIDon 2021 Lactate [Moles/Vol] 2.3 mmol/L Critically high 0.4-1.9 [facility] Comment on above: Performed By: #### L ACT #### [facility] [address] [address] [address] John Golden Lactate [Moles/Vol] 2.2 mmol/L Critically high 0.4-1.9 [facility] Comment on above: Performed By: #### P OCGLUC #### [facility] [address] [place] [address] Dr. John Golden Lactate [Moles/Vol] 5.3 mmol/L Critically high 0.4-1.9 [facility] Comment on above: Performed By: #### L ACT #### [facility] [address] [address] [address] John Golden PROF 14(COMP METB)on 022 Albumin [Mass/Vol] 3.0 g/dL Critically low 3.4-5.0 [facility] Comment on above: Performed By: #### C MP, CMADM, BNP #### [facility] [address] [address] [address] John Golden Albumin/Globulin [Mass ratio] 0.9 {ratio} Normal [facility] Comment on above: Performed By: #### C MP, CMADM, BNP #### [facility] [address] [place] [address] Dr. John Golden ALP [Catalytic activity/Vol] 88 U/L Normal 46-116 [facility] Comment on above: Performed By: #### C MP, CMADM, BNP #### [facility] [address] [address] [address] John Golden ALT [Catalytic activity/Vol] 76 U/L Critically high 14-59 [facility] Comment on above: Performed By: #### C MP, CMADM, BNP #### [facility] [address] [place] [address] Dr. John Golden Anion gap [Moles/Vol] 12.8 mmol/L Normal [facility] Comment on above: Performed By: #### C MP, CMADM, BNP #### [facility] [address] [place] [address] Dr. John Golden AST [Catalytic activity/Vol] 72 U/L Critically high 15-37 [facility] Comment on above: Performed By: #### C MP, CMADM, BNP #### [facility] [address] [place] [address] Dr. John Golden Bilirubin [Mass/Vol] 0.4 mg/dL Normal 0.2-1.0 [facility] Comment on above: Performed By: #### C MP, CMADM, BNP #### [facility] [address] [address] [address] John Golden Calcium [Mass/Vol] 7.3 mg/dL Critically low 8.5-10.1 [facility] Comment on above: Performed By: #### C MP, CMADM, BNP #### [facility] [address] [address] [address] John Golden Chloride [Moles/Vol] 109 mmol/L Critically high 98-107 [facility] Comment on above: Performed By: #### C MP, CMADM, BNP #### [facility] [address] [address] [address] John Golden CO2 [Moles/Vol] 23.5 mmol/L Normal 21.0-32.0 [facility] Comment on above: Performed By: #### C MP, CMADM, BNP #### [facility] [address] [place] [address] Dr. John Golden Creatinine [Mass/Vol] 0.52 mg/dL Critically low 0.55-1.02 [facility] Comment on above: Performed By: #### C MP, CMADM, BNP #### [facility] [address] [place] [address] Dr. John Golden EGFR-AF SIERRA LEONEAN >60 Normal >=60 [facility] Comment on above: Performed By: #### C MP, CMADM, BNP #### [facility] [address] [place] [address] Dr. John Golden EGFR-NON AF SIERRA LEONEAN >60 Normal >=60 [facility] Comment on above: Performed By: #### C MP, CMADM, BNP #### [facility] [address] [place] [address] Dr. John Golden Globulin (S) [Mass/Vol] 3.3 g/dL Normal [facility] Comment on above: Performed By: #### C MP, CMADM, BNP #### [facility] [address] [place] [address] Dr. John Golden Glucose [Mass/Vol] 109 mg/dL Critically high 74-106 [facility] Comment on above: Performed By: #### C MP, CMADM, BNP #### [facility] [address] [place] [address] Dr. John Golden Potassium [Moles/Vol] 4.3 mmol/L Normal 3.5-5.1 [facility] Comment on above: Performed By: #### C MP, CMADM, BNP #### [facility] [address] [place] [address] Dr. John Golden Protein [Mass/Vol] 6.3 g/dL Critically low 6.4-8.2 [facility] [facility] Comment on above: Performed By: #### C MP, CMADM, BNP #### [facility] [address] [place] [address] Dr. John Golden Sodium [Moles/Vol] 141 mmol/L Normal 136-145 [facility] Comment on above: Performed By: #### C MP, CMADM, BNP #### [facility] [address] [place] [address] Dr. John Golden Urea nitrogen [Mass/Vol] 4.0 mg/dL Critically low 7.0-18.0 [facility] Comment on above: Performed By: #### C MP, CMADM, BNP #### [facility] [address] [place] [address] Dr. John Golden Urea nitrogen/Creatinine [Mass ratio] 7.7 mg/mg Normal [facility] Comment on above: Performed By: #### C MP, CMADM, BNP #### [facility] [address] [place] [address] Dr. John Golden Albumin [Mass/Vol] 3.7 g/dL Normal 3.4-5.0 [facility] Comment on above: Performed By: #### P OCGLUC #### [facility] [address] [place] [address] Dr. John Golden Albumin/Globulin [Mass ratio] 0.9 {ratio} Normal [facility] Comment on above: Performed By: #### P OCGLUC #### [facility] [address] [place] [address] Dr. John Golden ALP [Catalytic activity/Vol] 124 U/L Critically high 46-116 [facility] Comment on above: Performed By: #### P OCGLUC #### [facility] [address] [address] [address] John Golden ALT [Catalytic activity/Vol] 94 U/L Critically high 14-59 [facility] Comment on above: Performed By: #### P OCGLUC #### [facility] [address] [address] [address] John Golden Anion gap [Moles/Vol] 15.5 mmol/L Normal Th [facility] Comment on above: Performed By: #### P OCGLUC #### [facility] [address] [address] [address] John Golden AST [Catalytic activity/Vol] 102 U/L Critically high 15-37 [facility] Comment on above: Performed By: #### P OCGLUC #### [facility] [address] [address] [address] John Golden Bilirubin [Mass/Vol] 0.6 mg/dL Normal 0.2-1.0 [facility] Comment on above: Performed By: #### P OCGLUC #### [facility] [address] [address] [address] John Golden Calcium [Mass/Vol] 8.5 mg/dL Normal 8.5-10.1 [facility] Comment on above: Performed By: #### P OCGLUC #### [facility] [address] [address] [address] John Golden Chloride [Moles/Vol] 103 mmol/L Normal 98-107 [facility] Comment on above: Performed By: #### P OCGLUC #### [facility] [address] [address] [address] John Golden CO2 [Moles/Vol] 23.5 mmol/L Normal 21.0-32.0 [facility] Comment on above: Performed By: #### P OCGLUC #### [facility] [address] [address] [address] John Golden Creatinine [Mass/Vol] 0.80 mg/dL Normal 0.55-1.02 [facility] Comment on above: Performed By: #### P OCGLUC #### [facility] [address] [address] [address] John Golden EGFR-AF SIERRA LEONEAN >60 Normal >=60 [facility] Comment on above: Performed By: #### P OCGLUC #### [facility] [address] [address] [address] John Golden EGFR-NON AF SIERRA LEONEAN >60 Normal >=60 [facility] Comment on above: Performed By: #### P OCGLUC #### [facility] [address] [address] [address] John Golden Globulin (S) [Mass/Vol] 3.9 g/dL Normal [facility] Comment on above: Performed By: #### P OCGLUC #### [facility] [address] [address] [address] John Golden Glucose [Mass/Vol] 155 mg/dL Critically high 74-106 [facility] Comment on above: Performed By: #### P OCGLUC #### [facility] [address] [address] [address] John Golden Potassium [Moles/Vol] 4.0 mmol/L Normal 3.5-5.1 [facility] Comment on above: Performed By: #### P OCGLUC #### [facility] [address] [address] [address] John Golden Protein [Mass/Vol] 7.6 g/dL Normal 6.4-8.2 [facility] Comment on above: Performed By: #### P OCGLUC #### [facility] [address] [address] [address] John Golden Sodium [Moles/Vol] 138 mmol/L Normal 136-145 [facility] Comment on above: Performed By: #### P OCGLUC #### [facility] [address] [address] [address] John Golden Urea nitrogen [Mass/Vol] 4.0 mg/dL Critically low 7.0-18.0 [facility] Comment on above: Performed By: #### P OCGLUC #### [facility] [address] [address] [address] John Golden Urea nitrogen/Creatinine [Mass ratio] 5.0 mg/mg Normal [facility] Comment on above: Performed By: #### P OCGLUC #### [facility] [address] [address] [address] John Golden SALICYLATEon 09-10-2021 SALICYLATE 4.8 mg/dL Normal <=19.9 [facility] Comment on above: Performed By: #### P OCGLUC #### [facility] [address] [address] [address] John Golden XR CHEST 1 Von [...] by: REJI TAYLOR Date: 2021-09-09 23:[address] [facility] POINT OF CARE GLUCOSEon 08-24 Glucose [Mass/Vol] 143 mg/dL Critically high 74-106 [facility] Comment on above: Performed By: #### P OCGLUC #### [facility] [id number] John Golden Encounters Encounter Date Encounter Type Care Provider Facility Start: 03-28-2023 Chart abstracting Chico Cohn MD Work Phone: Harmony Mejia Dundy [facility] Start: 09-10-2021 End: 09-10-[address] NONE LISTED REQUEST Facility: Procedures Date Procedure Procedure Detail Performing Clinician Start: 03-20-2023 MULTIPLE LABS Not In Sy stem Ref Prov Plan of Treatment Date Care Activity Detail Author Start: 05-11-2023 End: 05-11-2023 Patient encounter procedure 05/11/2023 11:30 AM EST Office Visit Harmony Lopez [facility] [address] [place] [id number] Chico Cohn MD [id number] [facility] [address] [address] [place] [address] Harmony Mejia [facility] - [facility] Oncology Start: 11-24-2022 Influenza vaccination Influenza Vaccine [facility] Start: 2017 Administration of varicella zoster vaccine Zoster (Shingles) Vaccine (1 of 2) [facility] Start: 02-20-1988 Screening for malignant neoplasm of cervix Pap Smear [facility] Start: 1986 DTaP,Tdap and Td Vaccines (1 - Tdap) DTaP,Tdap and Td Vaccines (1 - Tdap) [facility] Start: 1985 Adult BMI Screening Adult BMI Screening [facility] Start: 1979 Depression Screening Depression Screening [facility] Start: 1979 Tobacco Screening Tobacco Screening [facility] Payers Date Payer Category Payer Unknown [id number] 1957 Unknown [id number] Social History Date Type Detail Facility [facility] Tobacco smoking consumption unknown [facility] Start: 09-04-2018 History of Social function [facility] Start: 09-04-2018 Housing Instability [facility] Housing Instability Unknown [facility] Start: 1965 Sex Assigned At Not on file P [facility] Instructions Note Date & Type Note Facility Instructions Not on filedocumented in this en counter [facility] Summary Purpose Family History No Family History Records Found Advance Directives No Advanced Directives Records Found Additional Source Comments INFORMATION SOURCE (unrecogn ized section and content) DATE CREATED AUTHOR 09/15/2021 [facility] FOR RECORDS PERTAINING TO PATIENTS WHO ARE [...] BE BASED ON THE PRIMARY CLINICAL RECORDS. [facility] [employer] [facility] provides no warranty or guarantee of the accuracy or completeness of information in this document.
[2023-05-11 13:17] LABS: Basophils Percent Auto 0.4 % (0.2-2.0); Eosinophils Absolute Auto 0.1 10^3/uL (0.0-0.7); Eosinophils Percent Auto 0.6 % (0.9-7.0); Hematocrit 40.4 % (36.0-48.0); Hemoglobin 13.4 g/dL (12.0-16.0); Immature Granulocytes Abs Auto 0.02 10^3/uL (0.00-0.03); Immature Granulocytes Pct Auto 0.3 % (0.0-0.5); Lymphocytes Absolute Auto 1.8 10^3/uL (1.2-3.8); Lymphocytes Percent Auto 22.3 % (20.5-60.0); Mean Corpuscular HGB Conc 33.2 g/dL (29.9-35.2); Mean Corpuscular Hemoglobin 32.8 pg (26.7-34.0); Mean Platelet Volume 10.2 fL (9.5-13.5); Monocytes Absolute Auto 0.7 10^3/uL (0.3-0.8); Monocytes Percent Auto 9.4 % (1.7-12.0); Neutrophils Absolute Auto 5.3 10^3/uL (1.4-6.5); Platelet Count 99 10^3/uL (150-450); Red Blood Count 4.08 10^6/uL (4.20-5.40); Red Cell Distribution Width 13.6 % (11.0-15.0); White Blood Count 7.8 10^3/uL (4.0-11.0)
== END 2023-05-11 12:43 | disposition home or self-care (01) ==
LOC: LAB 12:45
PROVIDERS: PCP Nurse Practitioner Family
DX: D69.6 Thrombocytopenia, unspecified (principal)
CPT/HCPCS: 36415; 85025

== ENCOUNTER 2023-09-11 12:39 | Outpatient (OUT) | payer OTHER, SELFPAY ==
[2023-09-11 13:01] LABS: Basophils Percent Auto 0.5 % (0.2-2.0); Eosinophils Absolute Auto 0.1 10^3/uL (0.0-0.7); Eosinophils Percent Auto 1.4 % (0.9-7.0); Hematocrit 43.7 % (36.0-48.0); Hemoglobin 15.1 g/dL (12.0-16.0); Immature Granulocytes Abs Auto 0.01 10^3/uL (0.00-0.03); Immature Granulocytes Pct Auto 0.2 % (0.0-0.5); Lymphocytes Absolute Auto 1.6 10^3/uL (1.2-3.8); Lymphocytes Percent Auto 34.9 % (20.5-60.0); Mean Corpuscular HGB Conc 34.6 g/dL (29.9-35.2); Mean Corpuscular Hemoglobin 34.3 pg (26.7-34.0); Mean Corpuscular Volume 99.3 fL (81.0-99.0); Mean Platelet Volume 10.7 fL (9.5-13.5); Monocytes Absolute Auto 0.6 10^3/uL (0.3-0.8); Monocytes Percent Auto 12.6 % (1.7-12.0); Neutrophils Absolute Auto 2.2 10^3/uL (1.4-6.5); Neutrophils Percent Auto 50.4 % (43.0-75.0); Platelet Count 58 10^3/uL (150-450); Red Cell Distribution Width 14.1 % (11.0-15.0); White Blood Count 4.4 10^3/uL (4.0-11.0)
== END 2023-09-11 12:40 | disposition home or self-care (01) ==
PROVIDERS: PCP Nurse Practitioner Family
DX: D69.6 Thrombocytopenia, unspecified (principal)
CPT/HCPCS: 36415; 85025

== ENCOUNTER 2024-02-20 14:00 | Outpatient (OUT) | payer OTHER, SELFPAY ==
--- NOTE | 2024-02-20 14:05 | MM_ITS ---
Patient Name: JEREMÍAS RIOS MR#: [id number] : 1965 Exam Date: 02/20/2024 Ordering Doctor: DR Paul Johnson . RADIOLOGY REPORT PROCEDURE: MM TOMOSYNTHESIS DIAGNOSTIC BI, 02/20/2024, 14:06 US BREAST BI LIMITED, 02/20/2024, 14:51 COMPARISON: US BREAST BI LIMITED, 03/20/2023. MM DIAGNOSTIC MAMMO BI, 03/20/2023. MM TOMOSYNTHESIS SCREENING BI, 02/08/2023. INDICATIONS: Abnormal mamm Calculator Name NCI Breast Cancer Risk Assessment Tool 5 Year Breast Cancer Risk 0.80% Lifetime Breast Cancer Risk 5.20% Personal Breast Cancer No Personal Ovarian Cancer No Treatments None Family Cancers Mother with uterus cancer at age 45. LOCATION: [facility] BREAST COMPOSITION: There are scattered areas of fibroglandular density. FINDINGS: DIAGNOSTIC CATEGORY 2--BENIGN FINDING: RIGHT BREAST: Stable small nodule within the lower breast approximately 6 o'clock position on the mammogram. Ultrasound evaluation demonstrates a stable small lobular nodule suggestive of a lymph node. Annual screening mammography recommended. LEFT BREAST: Stable small nodule within the inferior subareolar region. Ultrasound evaluation demonstrates a nonspecific nodule, but suspected represent a lymph node; unchanged. Annual screening mammography is recommended. RECOMMENDATIONS: ROUTINE MAMMOGRAM AND CLINICAL EVALUATION IN 12 MONTHS. Active recommendations from prior exams: FOLLOW-UP ULTRASOUND BILATERAL BREASTS IN [#MONTHS] MONTHS. Due on 03/21/2024. PLEASE NOTE: A NORMAL MAMMOGRAM DOES NOT EXCLUDE THE POSSIBILITY OF BREAST CANCER. A CLINICALLY SUSPICIOUS PALPABLE LUMP SHOULD BE BIOPSIED. Dictated by: Gabriel Abreu M.D. on 02/20/2024 at 16:21 Approved by: Gabriel Abreu M.D. on 02/20/2024 at 16:26
== END 2024-02-20 14:01 | disposition home or self-care (01) ==
LOC: MAMMO 14:01
PROVIDERS: PCP Nurse Practitioner Family; Visit Provider Obstetrics & Gynecology
DX: R92.8 Other abnormal and inconclusive findings on diagnostic imaging of breast (principal); Z80.8 Family history of malignant neoplasm of other organs or systems
CPT/HCPCS: 76642; 77066; G0279

== ENCOUNTER 2025-02-10 09:39 | Outpatient (OUT) | payer OTHER, SELFPAY ==
--- OUTSIDE RECORDS SUMMARY | 2025-02-10 09:45 | XMS_ITS | CCD ---
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 Name Role Phone REQUEST, DR NONE LISTED Primary Care Unavaila lincoln MCDONNELL, DR CANALES Attending Unavailable KECIA, DR CANALES Consulting Unavailable KECIA, DR CANALES Admitting Unavailable KERLINE LUCIO Consulting Unavailable REJI TAYLOR Consulting Unavailable XIOMARA RYAN Referring Unavailable Unavailable Primary Care Provider Unavailabl e GERSON, CHICO Sow Attending Unavailable GERSON, CHICO Sow Referring Unavailable GERSON, CHICO Attending Unavailable GERSON, CHICO Referring Unavailable GERSON, CHICO Referring Unavailable GERSON, CHICO Sow Attending Unavailable IMELDA RANDOLPH Referring Unavailable Unavailable Primary Care Provider Unavailabl e Medications Current Medications MedicationDrug Class(es)DatesSig (Normalized)Sig (Original)cephalexin 500 mg oral capsule (4 sources)Cephalosporin AntibacterialStart: 90-57-8542sncp 1 capsule by mouth in the morning, then take 1 capsule by mouth in the evening, then take 1 capsule by mouth at bedtimecephalexin (Keflex) 500 MG capsule Indications: Vagina boil Take 1 capsule (500 mg) by mouth in themorning and 1 capsule (500 mg) in the evening and 1 capsule (500 mg) before bedtime. 30 capsule 1 01/22/2023 Active cholecalciferol 0.05 mg oral capsule (5 sources)Vitamin DStart: 16-47-7134pgyr 1 capsule by mouth in the morning cholecalciferol, vitamin D3, 2,000 units capsule Take 1 capsule (2,000 Units total) by mouth in themorning. 04/21/2023 Activenabumetone 750 mg oral tablet (5 sources)Nonsteroidal Anti-inflammatory DrugStart: 18-12-1616llxp 1 tablet by mouth once daily as needednabumetone (RELAFEN) 750 mg tablet Take 1 tablet (750 mg total) by mouth daily as needed. 04/17/2023 Activeomeprazole 40 mg delayed release oral capsule (9 sources)Proton Pump InhibitorStart: 47-16-0467ikbb 1 capsule by mouth before mealtimeomeprazole (PriLOSEC) [address] capsule Take 40 mg by mouth in the morning. Take before meals. 01/16/2023 Activeondansetron 4 mg disintegrating oral tablet (5 sources)Serotonin-3 Receptor AntagonistStart: 81-13-4780qwko 1 tablet by mouth every eight hours as neededondansetron ODT (ZOFRAN ODT) 4 mg disintegrating tablet Dissolve 1 tablet (4 mg total) on tongue every 8 (eight) hours as needed. 04/17/2023 Active Problems Active Problems Problem ClassificationProblemDateDocumented DateEpisodic/ChronicAlcohol-related disorders (1 source)Alcohol abuse with intoxication, unspecified; Translations: [ALCOHOL ABUSE WITH INTOXICATION UNS]Onset: 49-15-5782TdehvuvFpdixvpxjsb and hemorrhagic disorders (11 sources)Thrombocytopenic disorder; Translations: [Thrombocytopenia, unspecified]Onset: [id number] Codes: Unspecified (1 source)Blood alcohol level of 120-199 mg/100 ml; Translations: [BLOOD ALCOHOL LVL 120-199 MG/100 ML]Onset: 34-33-4728ZdkwjfkqPlgey and electrolyte disorders (1 source)Acidosis; Translations: [ACIDOSIS]Onset: 19-62-8770Mbhpagad Genitourinary symptoms and ill-defined conditions (1 source)Personal history of urinary (tract) infections; Translations: [PERS HX URINARY TRACT INFECTIONS]Onset: 28-44-6931OeyqdxieNofzs aftercare (1 source)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; Translations: [OTH USP CURRENT DRUG THERAPY]Onset: 13-43-9671JtbqaguxBzxytrcmd by other medications and drugs (1 source)Poisoning by unspecified narcotics, accidental (unintentional), initial encounter; Translations: [POISON UNS NARCOTIC ACC INITIAL ENC]Onset: 46-84-1457RtootlwvWsqswddc codes; unclassified (3 sources)Transient alteration of awareness; Translations: [TRANSIENT ALTERATION OF AWARENESS]Onset: 44-18-4471ArcmgmnoQbgznwfp codes; unclassified (1 source)Acquired absence of other specified parts of digestive tract; Translations: [ACQ ABSENCE OTH PART DIGESTV TRACT]Onset: 41-74-3910Zabumizb Residual codes; unclassified (1 source)Pain, unspecified; Translations: [Pain, unspecified]Onset: 05-15-2023 EpisodicSubstance-related disorders (1 source)Nicotine dependence, cigarettes, uncomplicated; Translations: [NICOTINE DEPEND CIGARETTES UNCOMP]Onset: 10-50-1900TgngqmfDmomhlgkjuhb (1 source)CONTACT W/AND (SUSP) EXPOS COVID-19; Translations: [CONTACT W/AND (SUSP) EXPOS COVID-19]Onset: 37-21-7885Yklkfdtkkppf (1 source)Abnormal Blood ChemisrtyOnset: 05-11-2023 Past or Other Problems Problem ClassificationProblemDateDocumented DateEpisodic/ChronicOther screening for suspected conditions (not mental disorders or infectious disease) (12 sources)Other specified abnormal findings of blood chemistry; Translations: [Other abnormal and inconclusive findings on diagnostic imaging of breast]Onset: [id number] Results Test NameValueInterpretationReference RangeFacilityCBC AND AUTO DIFFon 30-34-4742ZXYMQIWM BASOPHIL0.2 X10E9/LNormal0.0-0.2POhio State East Hospital Comment on above:Performed By: #### CBCA #### [facility] ([id number]) [address], [address] [place], [place] [address]FQQDWXCR NEUTROPHIL2.4 X10E9/LNormal1.5-6.6Kettering HealthComment on above:Performed By: #### CBCA #### [facility] ([id number]) [address] [place], [place] [address]Nbfmhdktb/100 WBC (Bld)2.7 %NormalProTexas Health Presbyterian [facility] Comment on above:Performed By: #### CBCA #### [facility] ([id number]) [address], [address] [place], [place] [address]Dgbssgnnbcr (Bld) [#/Vol]0.0 10*3/uLNormal0.0-0.4Kettering HealthComment on above:Performed By: #### CBCA #### [facility] ([id number]) [address], [address] [place] [address]Eghggpnqlks/100 WBC (Bld)0.4 %NormalKettering Health Comment on above:Performed By: #### CBCA #### [facility] ([id number]) [address], [address] [place], [place] [address]Utwxveenetp distribution width (RBC) [Ratio]13.5 %Normal 11.5-15.0Kettering HealthComment on above:Performed By: #### CBCA #### [facility] ([id number]) [address], [address] [place], [place] [address]Ogztmpsmcu (Bld) [Volume fraction]44.9 %Gokfzb74-16IzfGzfszdTexas Health Presbyterian Hospital PlanoComment on above:Performed By: #### CBCA #### [facility] ([id number]) [address], [address] [place], [place] [address]Kqwwgrejfj (Bld) [Mass/Vol]15.7 g/iKKvsk29.7-15.5POhio State East HospitalComment on above:Performed By: #### CBCA #### [facility] ([id number]) [address], [address] [place], [place] [address]Rmjriokakmq (Bld) [#/Vol]2.6 10*3/uLNormal1.0-3.5POhio State East HospitalComment on above:Performed By: #### CBCA #### [facility] ([id number]) [address], [address] [place], [place] [address]Ricdclskvbp/100 WBC (Bld)46.4 %NormalKettering Health Comment on above:Performed By: #### CBCA #### [facility] ([id number]) [address], [address] [place], [place] [address]MIG (RBC) [Entitic mass]36.4 foXkgd17-09SzsTdkbafKettering HealthComment on above:Performed By: #### CBCA #### [facility] ([id number]) [address], [address] [place], [place] [address]OLZA (RBC) [Mass/Vol]34.9 g/aGLdhyys29-26JdmIbadvaTexas Health Presbyterian Hospital PlanoComment on above:Performed By: #### CBCA #### [facility] ([id number]) [address], [address] [place], [place] [address]MAF (RBC) [Entitic vol]104 iEQisc70-472SeyBehbdeKettering HealthComment on above:Performed By: #### CBCA #### [facility] ([id number]) [address], [address] [place], [place] [address]Zaxggwckw (Bld) [#/Vol]0.5 10*3/uLNormal0-0.9Kettering HealthComment on above:Performed By: #### CBCA #### [facility] ([id number]) [address], [address] [place], [place] [address]Rucbmsbhs/100 WBC (Bld)8.3 %[facility] Comment on above:Performed By: #### CBCA #### [facility] ([id number]) [address], [address] [place], [place] [address]Ckwfshfsatp/100 WBC (Bld)42.2 %[facility] Comment on above:Performed By: #### CBCA #### [facility] ([id number]) [address], [address] [place], [place] [address]Mqnqzujl mean volume (Bld) [Entitic vol]8.5 fLNormal7-12 [facility] HealthComment on above:Performed By: #### CBCA #### [facility] ([id number]) [address], [address] [place], [place] [address]Fnqgtvtvw (Bld) [#/Vol]158 10*3/aPGxizqz523-566PgmRmhzdb [facility]remont HospitalComment on above:Performed By: #### CBCA #### [facility] ([id number]) [address], [address] [place], [place] [address]MCN COUNT4.31 X10E12/LNormal3.80-5.20[facility] Comment on above:Performed By: #### CBCA #### [facility] ([id number]) [address] [place], [place] [address]LGY (Bld) [#/Vol]5.7 10*3/uLNormal4.0-11.0ProTexas Health Presbyterian Hospital PlanoComment on above:Performed By: #### CBCA #### [facility] ([id number]) [address], [address] [place], [place] [address]VS TOMOSYNTHESIS DIAGNOSTIC BIon 59-25-1473[place]yt[place], [place] [address] Mammography Report Signed Patient: AIDE HARRY MR#: [id number] : 1965 Acct:[id number] Age/Sex: 59 / F ADM Date: 02/20/24 Loc: MAMMO Attending Dr: Paul Johnson D.O. Ordering Physician: Paul Johnson D.O. Results: Date of Service: 02/20/24 Follow Up: Procedure(s): MM tomosynthesis diagnostic BI Accession Number(s): [id number] cc: IMELDA RANDOLPH ; Paul Johnson D.O. Patient Name: AIDE HARRY MR#: [id number] : 1965 Exam Date: 02/20/2024 Ordering Doctor: DR Paul Johnson . RADIOLOGY REPORT PROCEDURE: MM TOMOSYNTHESIS DIAGNOSTIC BI, 02/20/2024, 14:06 US BREAST BI LIMITED, 02/20/2024, 14:51 COMPARISON: US BREAST BI LIMITED, 03/20/2023. MM DIAGNOSTIC MAMMO BI, 03/20/2023. MM TOMOSYNTHESIS SCREENING BI, 02/08/2023. INDICATIONS: Abnormal mamm Calculator Name NCI Breast Cancer Risk Assessment Tool 5 Year Breast Cancer Risk 0.80% Lifetime Breast Cancer Risk 5.20% Personal Breast Cancer No Personal Ovarian Cancer No Treatments None Family Cancers Mother with uterus cancer at age 45. LOCATION: [facility] BREAST COMPOSITION: There are scattered areas of fibroglandular density. FINDINGS: DIAGNOSTIC CATEGORY 2--BENIGN FINDING: RIGHT BREAST: Stable small nodule within the lower breast approximately 6 o'clock position on the mammogram. Ultrasound evaluation demonstrates a stable small lobular nodule suggestive of a lymph node. Annual screening mammography recommended. LEFT BREAST: Stable small nodule within the inferior subareolar region. Ultrasound evaluation demonstrates a nonspecific nodule, but suspected represent a lymph node; unchanged. Annual screening mammography is recommended. RECOMMENDATIONS: ROUTINE MAMMOGRAM AND CLINICAL EVALUATION IN 12 MONTHS. Active recommendations from prior exams: FOLLOW-UP ULTRASOUND BILATERAL BREASTS IN [#MONTHS] MONTHS. Due on 03/21/2024. PLEASE NOTE: A NORMAL MAMMOGRAM DOES NOT EXCLUDE THE POSSIBILITY OF BREAST CANCER. A CLINICALLY SUSPICIOUS PALPABLE LUMP SHOULD BE BIOPSIED. Dictated by: Gabriel Abreu M.D. on 02/20/2024 at 16:21 Approved by: Gabriel Abreu M.D. on 02/20/2024 at 16:26 Dictated By: Gabriel Abreu M.D. Signed By: 02/20/24 1628 DD/ 1627 TD/TT: Supervisor Speech:TBHRadiology, Radiologist, MD - 02/20/2024 [place] [address] Mammography Report Signed Patient: AIDE HARRY MR#: [id number] : 1965 Acct:[id number] Age/Sex: 59 / F ADM Date: 02/20/24 Loc: MAMMO Attending Dr: Paul Johnson D.O. Ordering Physician: Paul Johnson D.O. Results: Date of Service: 02/20/24 Follow Up: Procedure(s): MM tomosynthesis diagnostic BI Accession Number(s): [id number] cc: IMELDA RANDOLPH ; Paul Johnson D.O. Patient Name: AIDE HARRY MR#: [id number] : 1965 Exam Date: 02/20/2024 Ordering Doctor: DR Paul Johnson . RADIOLOGY REPORT PROCEDURE: MM TOMOSYNTHESIS DIAGNOSTIC BI, 02/20/2024, 14:06 US BREAST BI LIMITED, 02/20/2024, 14:51 COMPARISON: US BREAST BI LIMITED, 03/20/2023. MM DIAGNOSTIC MAMMO BI, 03/20/2023. MM TOMOSYNTHESIS SCREENING BI, 02/08/2023. INDICATIONS: Abnormal mamm Calculator Name NCI Breast Cancer Risk Assessment Tool 5 Year Breast Cancer Risk 0.80% Lifetime Breast Cancer Risk 5.20% Personal Breast Cancer No Personal Ovarian Cancer No Treatments None Family Cancers Mother with uterus cancer at age 45. LOCATION: [facility] BREAST COMPOSITION: There are scattered areas of fibroglandular density. FINDINGS: DIAGNOSTIC CATEGORY 2--BENIGN FINDING: RIGHT BREAST: Stable small nodule within the lower breast approximately 6 o'clock position on the mammogram. Ultrasound evaluation demonstrates a stable small lobular nodule suggestive of a lymph node. Annual screening mammography recommended. LEFT BREAST: Stable small nodule within the inferior subareolar region. Ultrasound evaluation demonstrates a nonspecific nodule, but suspected represent a lymph node; unchanged. Annual screening mammography is recommended. RECOMMENDATIONS: ROUTINE MAMMOGRAM AND CLINICAL EVALUATION IN 12 MONTHS. Active recommendations from prior exams: FOLLOW-UP ULTRASOUND BILATERAL BREASTS IN [#MONTHS] MONTHS. Due on 03/21/2024. PLEASE NOTE: A NORMAL MAMMOGRAM DOES NOT EXCLUDE THE POSSIBILITY OF BREAST CANCER. A CLINICALLY SUSPICIOUS PALPABLE LUMP SHOULD BE BIOPSIED. Dictated by: Gabriel Abreu M.D. on 02/20/2024 at 16:21 Approved by: Gabriel Abreu M.D. on 02/20/2024 at 16:26 Dictated By: Gabriel Abreu M.D. Signed By: 02/20/248 DD/ 26 TD/TT: Supervisor Speech: [facility] HealthcareNo Panel InformationOrdered By: Radiologist Radiology on 14-03-6046[facility] Work Phone: No Panel Informationon 10-65-3951Otnfbwqpp Study observation (narrative)SAURABH HernandezUS BREAST BI LIMITEDon 29-99-7397[address] [address] Ultrasound Report Signed Patient: AIDE HARRY MR#: [id number] : 1965 Acct:[id number] Age/Sex: 59 / F ADM Date: 02/20/24 Loc: MAMMO Attending Dr: Paul Johnson D.O. Ordering Physician: Paul Johnson D.O. Date of Service: 02/20/24 Procedure(s): US breast BI limited Accession Number(s): [id number] cc: IMELDA RANDOLPH ; Paul Johnson D.O. Patient Name: AIDE HARRY MR#: [id number] : 1965 Exam Date: 02/20/2024 Ordering Doctor: DR Paul Johnson . RADIOLOGY REPORT PROCEDURE: MM TOMOSYNTHESIS DIAGNOSTIC BI, 02/20/2024, 14:06 US BREAST BI LIMITED, 02/20/2024, 14:51 COMPARISON: US BREAST BI LIMITED, 03/20/2023. MM DIAGNOSTIC MAMMO BI, 03/20/2023. MM TOMOSYNTHESIS SCREENING BI, 02/08/2023. INDICATIONS: Abnormal mamm Calculator Name NCI Breast Cancer Risk Assessment Tool 5 Year Breast Cancer Risk 0.80% Lifetime Breast Cancer Risk 5.20% Personal Breast Cancer No Personal Ovarian Cancer No Treatments None Family Cancers Mother with uterus cancer at age 45. LOCATION: [facility] BREAST COMPOSITION: There are scattered areas of fibroglandular density. FINDINGS: DIAGNOSTIC CATEGORY 2--BENIGN FINDING: RIGHT BREAST: Stable small nodule within the lower breast approximately 6 o'clock position on the mammogram. Ultrasound evaluation demonstrates a stable small lobular nodule suggestive of a lymph node. Annual screening mammography recommended. LEFT BREAST: Stable small nodule within the inferior subareolar region. Ultrasound evaluation demonstrates a nonspecific nodule, but suspected represent a lymph node; unchanged. Annual screening mammography is recommended. RECOMMENDATIONS: ROUTINE MAMMOGRAM AND CLINICAL EVALUATION IN 12 MONTHS. Active recommendations from prior exams: FOLLOW-UP ULTRASOUND BILATERAL BREASTS IN [#MONTHS] MONTHS. Due on 03/21/2024. PLEASE NOTE: A NORMAL MAMMOGRAM DOES NOT EXCLUDE THE POSSIBILITY OF BREAST CANCER. A CLINICALLY SUSPICIOUS PALPABLE LUMP SHOULD BE BIOPSIED. Dictated by: Gabriel Abreu M.D. on 02/20/2024 at 16:21 Approved by: Gabriel Abreu M.D. on 02/20/2024 at 16:26 Dictated By: Gabriel Abreu M.D. Signed By: 02/20/24 1628 DD/ 26 TD/TT: Supervisor Speech:TBHRadiology, Radiologist, MD - 02/20/2024 [place] [address] Ultrasound Report Signed Patient: AIDE HARRY MR#: [id number] : 1965 Acct:[id number] Age/Sex: 59 / F ADM Date: 02/20/24 Loc: MAMMO Attending Dr: Paul Johnson D.O. Ordering Physician: Paul Johnson D.O. Date of Service: 02/20/24 Procedure(s): US breast BI limited Accession Number(s): [id number] cc: IMELDA RANDOLPH ; Paul Johnson D.O. Patient Name: AIDE HARRY MR#: [id number] : 1965 Exam Date: 02/20/2024 Ordering Doctor: DR Paul Johnson . RADIOLOGY REPORT PROCEDURE: MM TOMOSYNTHESIS DIAGNOSTIC BI, 02/20/2024, 14:06 US BREAST BI LIMITED, 02/20/2024, 14:51 COMPARISON: US BREAST BI LIMITED, 03/20/2023. MM DIAGNOSTIC MAMMO BI, 03/20/2023. MM TOMOSYNTHESIS SCREENING BI, 02/08/2023. INDICATIONS: Abnormal mamm Calculator Name NCI Breast Cancer Risk Assessment Tool 5 Year Breast Cancer Risk 0.80% Lifetime Breast Cancer Risk 5.20% Personal Breast Cancer No Personal Ovarian Cancer No Treatments None Family Cancers Mother with uterus cancer at age 45. LOCATION: [facility] BREAST COMPOSITION: There are scattered areas of fibroglandular density. FINDINGS: DIAGNOSTIC CATEGORY 2--BENIGN FINDING: RIGHT BREAST: Stable small nodule within the lower breast approximately 6 o'clock position on the mammogram. Ultrasound evaluation demonstrates a stable small lobular nodule suggestive of a lymph node. Annual screening mammography recommended. LEFT BREAST: Stable small nodule within the inferior subareolar region. Ultrasound evaluation demonstrates a nonspecific nodule, but suspected represent a lymph node; unchanged. Annual screening mammography is recommended. RECOMMENDATIONS: ROUTINE MAMMOGRAM AND CLINICAL EVALUATION IN 12 MONTHS. Active recommendations from prior exams: FOLLOW-UP ULTRASOUND BILATERAL BREASTS IN [#MONTHS] MONTHS. Due on 03/21/2024. PLEASE NOTE: A NORMAL MAMMOGRAM DOES NOT EXCLUDE THE POSSIBILITY OF BREAST CANCER. A CLINICALLY SUSPICIOUS PALPABLE LUMP SHOULD BE BIOPSIED. Dictated by: Gabriel Abreu M.D. on 02/20/2024 at 16:21 Approved by: Gabriel Abreu M.D. on 02/20/2024 at 16:26 Dictated By: Gabriel Abreu M.D. Signed By: 02/20/24 1628 DD/ 1627 TD/TT: Supervisor Speech: SAURABH [facility] BREAST BILAT W WO CONT W CADon 15-75-9058RN BREAST BILAT W WO CONT W CADMR BREAST BILAT W WO CONT W CAD EXAM: MR BREAST BILAT W WO CONT W CAD, 08/11/2023 8:05 AM INDICATION: Abnormal imaging at outside institution. Bilateral breast findings COMPARISON: Outside mammogram and ultrasound 02/28/2023, 02/08/2023 TECHNIQUE: Breast images obtained utilizing a 1.5T MRI with dedicated breast coil. Three-dimensional, high resolution fat suppressed T1 weighted images were obtained prior to, immediately following, and after sequential delays relative to intravenous gadolinium contrast administration. Precontrast STIR and non-fat suppressed T1 axial images were also obtained. 3D image and subtraction processing were performed using [employer] software. The images were interpreted using image subtraction, reregistration, multiplanar reconstruction, 2D and 3D acquisition and subtracted MIP, MILLA, Time Activity curves and color mapping. CONTRAST VOLUME: 7 mL Gadavist FINDINGS: There is mild background enhancement bilaterally, symmetric. Within the right breast there is a lobulated enhancing mass measuring 5 mm with central fat signal.In the retroareolar 9:00 right breast there is a 4 mm enhancing mass. Both of these masses demonstrate STIR and T1 hyperintensity with central vascularity, compatible with intramammary lymph nodes. These findings are consistent with the previous mammogram and ultrasound findings. There are no suspicious enhancing lesions and no significant axillary or internal mammary lymphadenopathy. The skin, nipples and chest wall are unremarkable. IMPRESSION: Normal examination. No evidence for breast cancer or other significant finding. Bilateral intramammary lymph nodes consistent with prior imaging. Patient is due for bilateral screening mammogram in February 2024. These areas will be monitored for stability at that time. BI-RADS: BI-RADS 2 - Benign Recommendation: Return to annual screening mammography. Finalized by Kimberly Henderson MD on 08/11/2023 9:26 AM [address] [facility] Breast - bilateral [facility] 11-75-3802[place]tm[place], [place] [address] Mammography Report Signed Patient: AIDE HARRY MR#: [id number] : 1965 Acct:[id number] Age/Sex: 58 / F ADM Date: 03/20/23 Loc: MAMMO Attending Dr: Paul Johnson D.O. Ordering Physician: Paul Johnson D.O. Results: Date of Service: 03/20/23 Follow Up: Procedure(s): MM diagnostic mammo BI Accession Number(s): [id number] cc: IMELDA RANDOLPH ; Paul Johnson D.O. Patient Name: AIDE HARRY MR#: [id number] : 1965 Exam Date: 03/20/2023 Ordering Doctor: DR Paul Johnson . RADIOLOGY REPORT PROCEDURE: MM DIAGNOSTIC MAMMO BI, 03/20/2023, 13:03 US BREAST BI LIMITED, 03/20/2023, 13:22 COMPARISON: MM TOMOSYNTHESIS SCREENING BI, 02/08/2023. INDICATIONS: mammogram abnormal R92.8 Calculator Name NCI Breast Cancer Risk Assessment Tool 5 Year Breast Cancer Risk 0.80% Lifetime Breast Cancer Risk 5.30% Personal Breast Cancer No Personal Ovarian Cancer No Treatments None Family Cancers Mother with uterus cancer at age 45. LOCATION: [facility] BREAST COMPOSITION: Scattered areas fibroglandular density. FINDINGS: DIAGNOSTIC CATEGORY 3--PROBABLY BENIGN FINDING. THE FOLLOWING FINDING(S) HAS A HIGH PROBABILITY OF A BENIGN ETIOLOGY: RIGHT BREAST: Spot magnification views demonstrate persistence of the small partially circumscribed mass within lower midline breast. Ultrasound evaluation demonstrates a 7 x 4 x 4 mm lobular lesion with central fatty hilum at the 6 o'clock position 2.1 cm from the nipple suspected represent a lymph node. Follow-up mammography and ultrasound evaluation in 6 months is recommended to document stability and to help establish baseline. LEFT BREAST: Spot magnification views demonstrate persistence of a 5 mm partially circumscribed mass within the anterior breast 9 o'clock position. Ultrasound evaluation demonstrates a small mass versus lymph node at the 9 o'clock position 1.2 cm from the nipple, 4 x 3 x 2 millimeters. Follow-up mammography and ultrasound evaluation in 6 months is recommended. RECOMMENDATIONS: SHORT TERM FOLLOW-UP DIAGNOSTIC MAMMOGRAM BILATERAL BREASTS IN 6 MONTHS. FOLLOW-UP ULTRASOUND BILATERAL BREASTS IN 12 MONTHS. PLEASE NOTE: A NORMAL MAMMOGRAM DOES NOT EXCLUDE THE POSSIBILITY OF BREAST CANCER. A CLINICALLY SUSPICIOUS PALPABLE LUMP SHOULD BE BIOPSIED. Dictated by: Gabriel Abreu M.D. on 03/21/2023 at 09:16 Approved by: Gabriel Abreu M.D. on 03/21/2023 at 09:27 Dictated By: Gabriel Abreu M.D. Signed By: 03/21/23927 DD/ 7 TD/TT: Supervisor Speech:TBHRadiology, Radiologist, - 03/21/2023 [place] [address] Mammography Report Signed Patient: AIDE HARRY MR#: [id number] : 1965 Acct:[id number] Age/Sex: 58 / F ADM Date: 03/20/23 Loc: MAMMO Attending Dr: Paul Johnson D.O. Ordering Physician: Paul Johnson D.O. Results: Date of Service: 03/20/23 Follow Up: Procedure(s): MM diagnostic mammo BI Accession Number(s): [id number] cc: IMELDA RANDOLPH ; Paul Johnson D.O. Patient Name: AIDE HARRY MR#: [id number] : 1965 Exam Date: 03/20/2023 Ordering Doctor: DR Paul Johnson . RADIOLOGY REPORT PROCEDURE: MM DIAGNOSTIC MAMMO BI, 03/20/2023, 13:03 US BREAST BI LIMITED, 03/20/2023, 13:22 COMPARISON: MM TOMOSYNTHESIS SCREENING BI, 02/08/2023. INDICATIONS: mammogram abnormal R92.8 Calculator Name NCI Breast Cancer Risk Assessment Tool 5 Year Breast Cancer Risk 0.80% Lifetime Breast Cancer Risk 5.30% Personal Breast Cancer No Personal Ovarian Cancer No Treatments None Family Cancers Mother with uterus cancer at age 45. LOCATION: [facility] BREAST COMPOSITION: Scattered areas fibroglandular density. FINDINGS: DIAGNOSTIC CATEGORY 3--PROBABLY BENIGN FINDING. THE FOLLOWING FINDING(S) HAS A HIGH PROBABILITY OF A BENIGN ETIOLOGY: RIGHT BREAST: Spot magnification views demonstrate persistence of the small partially circumscribed mass within lower midline breast. Ultrasound evaluation demonstrates a 7 x 4 x 4 mm lobular lesion with central fatty hilum at the 6 o'clock position 2.1 cm from the nipple suspected represent a lymph node. Follow-up mammography and ultrasound evaluation in 6 months is recommended to document stability and to help establish baseline. LEFT BREAST: Spot magnification views demonstrate persistence of a 5 mm partially circumscribed mass within the anterior breast 9 o'clock position. Ultrasound evaluation demonstrates a small mass versus lymph node at the 9 o'clock position 1.2 cm from the nipple, 4 x 3 x 2 millimeters. Follow-up mammography and ultrasound evaluation in 6 months is recommended. RECOMMENDATIONS: SHORT TERM FOLLOW-UP DIAGNOSTIC MAMMOGRAM BILATERAL BREASTS IN 6 MONTHS. FOLLOW-UP ULTRASOUND BILATERAL BREASTS IN 12 MONTHS. PLEASE NOTE: A NORMAL MAMMOGRAM DOES NOT EXCLUDE THE POSSIBILITY OF BREAST CANCER. A CLINICALLY SUSPICIOUS PALPABLE LUMP SHOULD BE BIOPSIED. Dictated by: Gabriel Abreu M.D. on 03/21/2023 at 09:16 Approved by: Gabriel Abreu M.D. on 03/21/2023 at 09:27 Dictated By: Gabriel Abreu M.D. Signed By: 03/21/23927 DD/ 7 TD/TT: Supervisor Speech: [facility] - bilateral DiagnosticOrdered By: Radiologist Radiology on [id number] OggiFinogi Work Phone: No Panel Informationon [id number] Study observation (narrative)SAURABH HernandezUS BREAST BI LIMITEDon [id number] [address] Ultrasound Report Signed Patient: AIDE HARRY MR#: [id number] : 1965 Acct:[id number] Age/Sex: 58 / F ADM Date: 03/20/23 Loc: MAMMO Attending Dr: Paul Johnson D.O. Ordering Physician: Paul Johnson D.O. Date of Service: 03/20/23 Procedure(s): US breast BI limited Accession Number(s): [id number] cc: IMELDA RANDOLPH ; Paul Johnson D.O. Patient Name: AIDE HARRY MR#: [id number] : 1965 Exam Date: 03/20/2023 Ordering Doctor: DR Paul Johnson . RADIOLOGY REPORT PROCEDURE: MM DIAGNOSTIC MAMMO BI, 03/20/2023, 13:03 US BREAST BI LIMITED, 03/20/2023, 13:22 COMPARISON: MM TOMOSYNTHESIS SCREENING BI, 02/08/2023. INDICATIONS: mammogram abnormal R92.8 Calculator Name NCI Breast Cancer Risk Assessment Tool 5 Year Breast Cancer Risk 0.80% Lifetime Breast Cancer Risk 5.30% Personal Breast Cancer No Personal Ovarian Cancer No Treatments None Family Cancers Mother with uterus cancer at age 45. LOCATION: [facility] BREAST COMPOSITION: Scattered areas fibroglandular density. FINDINGS: DIAGNOSTIC CATEGORY 3--PROBABLY BENIGN FINDING. THE FOLLOWING FINDING(S) HAS A HIGH PROBABILITY OF A BENIGN ETIOLOGY: RIGHT BREAST: Spot magnification views demonstrate persistence of the small partially circumscribed mass within lower midline breast. Ultrasound evaluation demonstrates a 7 x 4 x 4 mm lobular lesion with central fatty hilum at the 6 o'clock position 2.1 cm from the nipple suspected represent a lymph node. Follow-up mammography and ultrasound evaluation in 6 months is recommended to document stability and to help establish baseline. LEFT BREAST: Spot magnification views demonstrate persistence of a 5 mm partially circumscribed mass within the anterior breast 9 o'clock position. Ultrasound evaluation demonstrates a small mass versus lymph node at the 9 o'clock position 1.2 cm from the nipple, 4 x 3 x 2 millimeters. Follow-up mammography and ultrasound evaluation in 6 months is recommended. RECOMMENDATIONS: SHORT TERM FOLLOW-UP DIAGNOSTIC MAMMOGRAM BILATERAL BREASTS IN 6 MONTHS. FOLLOW-UP ULTRASOUND BILATERAL BREASTS IN 12 MONTHS. PLEASE NOTE: A NORMAL MAMMOGRAM DOES NOT EXCLUDE THE POSSIBILITY OF BREAST CANCER. A CLINICALLY SUSPICIOUS PALPABLE LUMP SHOULD BE BIOPSIED. Dictated by: Gabriel Abreu M.D. on 03/21/2023 at 09:16 Approved by: Gabriel Abreu M.D. on 03/21/2023 at 09:27 Dictated By: Gabriel Abreu M.D. Signed By: 03/21/23928 DD/ 7 TD/TT: Supervisor Speech:TBHRadiology, Radiologist, - 03/21/2023 [place] [address] Ultrasound Report Signed Patient: AIDE HARRY MR#: [id number] : 1965 Acct:[id number] Age/Sex: 58 / F ADM Date: 03/20/23 Loc: MAMMO Attending Dr: Paul Johnson D.O. Ordering Physician: Paul Johnson D.O. Date of Service: 03/20/23 Procedure(s): US breast BI limited Accession Number(s): [id number] cc: IMELDA RANDOLPH ; Paul Johnson D.O. Patient Name: AIDE HARRY MR#: [id number] : 1965 Exam Date: 03/20/2023 Ordering Doctor: DR Paul Johnson . RADIOLOGY REPORT PROCEDURE: MM DIAGNOSTIC MAMMO BI, 03/20/2023, 13:03 US BREAST BI LIMITED, 03/20/2023, 13:22 COMPARISON: MM TOMOSYNTHESIS SCREENING BI, 02/08/2023. INDICATIONS: mammogram abnormal R92.8 Calculator Name NCI Breast Cancer Risk Assessment Tool 5 Year Breast Cancer Risk 0.80% Lifetime Breast Cancer Risk 5.30% Personal Breast Cancer No Personal Ovarian Cancer No Treatments None Family Cancers Mother with uterus cancer at age 45. LOCATION: [facility] BREAST COMPOSITION: Scattered areas fibroglandular density. FINDINGS: DIAGNOSTIC CATEGORY 3--PROBABLY BENIGN FINDING. THE FOLLOWING FINDING(S) HAS A HIGH PROBABILITY OF A BENIGN ETIOLOGY: RIGHT BREAST: Spot magnification views demonstrate persistence of the small partially circumscribed mass within lower midline breast. Ultrasound evaluation demonstrates a 7 x 4 x 4 mm lobular lesion with central fatty hilum at the 6 o'clock position 2.1 cm from the nipple suspected represent a lymph node. Follow-up mammography and ultrasound evaluation in 6 months is recommended to document stability and to help establish baseline. LEFT BREAST: Spot magnification views demonstrate persistence of a 5 mm partially circumscribed mass within the anterior breast 9 o'clock position. Ultrasound evaluation demonstrates a small mass versus lymph node at the 9 o'clock position 1.2 cm from the nipple, 4 x 3 x 2 millimeters. Follow-up mammography and ultrasound evaluation in 6 months is recommended. RECOMMENDATIONS: SHORT TERM FOLLOW-UP DIAGNOSTIC MAMMOGRAM BILATERAL BREASTS IN 6 MONTHS. FOLLOW-UP ULTRASOUND BILATERAL BREASTS IN 12 MONTHS. PLEASE NOTE: A NORMAL MAMMOGRAM DOES NOT EXCLUDE THE POSSIBILITY OF BREAST CANCER. A CLINICALLY SUSPICIOUS PALPABLE LUMP SHOULD BE BIOPSIED. Dictated by: Gabriel Abreu M.D. on 03/21/2023 at 09:16 Approved by: Gabriel Abreu M.D. on 03/21/2023 at 09:27 Dictated By: Gabriel Abreu M.D. Signed By: 03/21/23928 DD/ 7 TD/TT: Supervisor Speech: SAURABH Licea BREAST BI LIMITEDOrdered By: Radiologist Radiology on [id number] OggiFinogi Work Phone: Multiple labson [phone] ACETAMINOPHENon 50-80-4480Rtoxwuclrrply [Mass/Vol]ug/mLCritically low10.0-30.0 [facility] on above:Performed By: #### POCGLUC #### [facility] [address] [place] [address] Dr. John Meyer 55-01-2752Lzplnexwpqg peptide B (Bld) [Mass/Vol]435.0 pg/mL Normal<=900.0[facility] HospitalComment on above:Performed By: #### CMP, CMADM, BNP #### [facility] [address] [place] [address] Dr. John SANDS 3-6on [id number] [Catalytic activity/Vol]40 U/L Immccg74-907CcpOhiohealth Riverside Methodist HospitalComment on above:Performed By: #### POCGLUC #### [facility] [address] [place] [address] Dr. John Fontaine [Mass/Vol]1.11 ng/mLNormal<=3.60[facility] Comment on above:Performed By: #### POCGLUC #### [facility] [address] [place] [address] Dr. John Nj22.0 pg/mLNormal4.0-51.3TGalion [facility] on above:Result Comment: CUT-OFF POINTS HAVE BEEN ESTABLISHED BASED ON THE FOURTH UNIVERSAL DEFINITIONS OF MYOCARDIAL INFARCTION. THE UPPER REFERENCE LIMIT (URL) OF TROPONIN, DEFINED THE 99TH PERCENTILE OF cTnI DISTRIBUTION IN A REFERENCE POPULATION, HAS BEEN CONFIRMED THE DECISION THRESHOLD FOR HI DIAGNOSIS.Performed By: #### POCGLUC #### [facility] [address] [place] [address] Dr. John SANDS ADMITon [id number] [Catalytic activity/Vol]57 U/L Iuzlbh07-449ZctOhiohealth Riverside Methodist HospitalComhenry [facility] on above:Performed By: #### CMP, CMADM, BNP #### [facility] [address] [place] [address] Dr. John Fontaine [Mass/Vol]1.07 ng/mLNormal<=3.60[facility] Comment on above:Performed By: #### CMP, CMADM, BNP #### [facility] [address] [place] [address] Dr. John MasonOP16.7 pg/mLNormal4.0-51.3TGalion Community Hospital on above:Result Comment: CUT-OFF POINTS HAVE BEEN ESTABLISHED BASED ON THE FOURTH UNIVERSAL DEFINITIONS OF MYOCARDIAL INFARCTION. THE UPPER REFERENCE LIMIT (URL) OF TROPONIN, DEFINED THE 99TH PERCENTILE OF cTnI DISTRIBUTION IN A REFERENCE POPULATION, HAS BEEN CONFIRMED THE DECISION THRESHOLD FOR HI DIAGNOSIS.Performed By: #### CMP, CMADM, BNP #### [facility] [address] [place] [address] Dr. John MaddenO26 ng/mLNormal9-82[facility] WestComment on above: Performed By: #### CMP, CMADM, BNP #### [facility] [address] [place] [address] Dr. John Urias [Catalytic activity/Vol]31 U/TLpvmes71-013Mef [facility] WestComment on above:Performed By: #### POCGLUC #### [facility] [address] [place] [address] Dr. John Urias.MB [Mass/Vol]0.59 ng/mLNormal<=3.60[facility] Comment on above:Performed By: #### POCGLUC #### [facility] [address] [place] [address] Dr. John GoldenHSTROP7.0 pg/mLNormal4.0-51.3[facility] WestComment on above:Result Comment: CUT-OFF POINTS HAVE BEEN ESTABLISHED BASED ON THE FOURTH UNIVERSAL DEFINITIONS OF MYOCARDIAL INFARCTION. THE UPPER REFERENCE LIMIT (URL) OF TROPONIN, DEFINED THE 99TH PERCENTILE OF cTnI DISTRIBUTION IN A REFERENCE POPULATION, HAS BEEN CONFIRMED THE DECISION THRESHOLD FOR HI DIAGNOSIS.Performed By: #### POCGLUC #### [facility] [address] [place] [address] Dr. John MaddenO32 ng/mLNormal9-82[facility] HospitalComment on above: Performed By: #### POCGLUC #### [facility] [address] [place] [address] Dr. John Reilly AUTO DIFFon [id number] #0.0 103/ulNormal0.0-0.1[facility] HospitalComment on above:Performed By: #### POCGLUC #### [facility] [address] [place] [address] Dr. John GoldenBasophils/100 WBC (Bld)0.5 %Normal0.2-2.0[facility] Comment on above:Performed By: #### POCGLUC #### [facility] [address] [place] [address] Dr. John Meneses #0.0 103/ulNormal0.0-0.7[facility] WestComment on above: Performed By: #### POCGLUC #### [facility] [address] [place] [address] Dr. John Fowlerosinophils/100 WBC (Bld)0.5 %Critically low0.9-7.0[facility] WestComment on above:Performed By: #### POCGLUC #### [facility] [address] [place] [address] Dr. John Fowlerrythrocyte distribution width (RBC) [Ratio]13.6 %Ucepel26.0-15.0 [facility] WestComment on above:Performed By: #### POCGLUC #### [facility] [address] [place] [address] Dr. John GoldenHematocrit (Bld) [Volume fraction]34.4 %Critically low36.0-48.0 [facility] WestComment on above:Performed By: #### POCGLUC #### [facility] [address] [place] [address] Dr. John GoldenHemoglobin (Bld) [Mass/Vol]11.4 g/dLCritically low12.0-16.0[facility] WestComment on above:Result Comment: FLUIDSPerformed By: #### POCGLUC #### [facility] [address] [place] [address] Dr. John Mcbride #0.02 10e3/ulNormal0.00-0.03The [facility] WestComment on above:Performed By: #### POCGLUC #### [facility] [address] [place] [address] Dr. John Mcbride %0.5 %Normal0.0-0.5The [facility] WestComment on above: Performed By: #### POCGLUC #### [facility] [address] [address] [address] John Osborne #1.6 103/ulNormal1.2-3.8The [facility] WestComment on above:Performed By: #### POCGLUC #### [facility] [address] [address] [address] John Gohocytes/100 WBC (Bld)37.9 %Sxwqdr87.5-60.0The [facility] WestComment on above:Performed By: #### POCGLUC #### [facility] [address] [address] [address] John Garcia DIFF REQNONormalThe [facility] WestComment on above: Performed By: #### POCGLUC #### [facility] [address] [place] [address] Dr. John Henry (RBC) [Entitic mass]35.1 pgCritically high26.7-34.0The [facility] WestComment on above:Performed By: #### POCGLUC #### [facility] [address] [place] [address] Dr. John Henry (RBC) [Mass/Vol]33.1 g/jIQngzli45.9-35.2The [facility] WestComment on above:Performed By: #### POCGLUC #### [facility] [address] [place] [address] Dr. John Henry (RBC) [Entitic vol]105.8 fLCritically high81.0-99.0The [facility] WestComment on above:Performed By: #### POCGLUC #### [facility] [address] [place] [address] Dr. John Akins #0.5 103/ulNormal0.3-0.8The [facility] WestComment on above:Performed By: #### POCGLUC #### [facility] [address] [place] [address] Dr. John Lazaroocytes/100 WBC (Bld)11.0 %Normal1.7-12.0[facility] Comment on above:Performed By: #### POCGLUC #### [facility] [address] [address] [address] John RodriguezUT #2.0 103/ulNormal1.4-6.5The [facility] WestComment on above:Performed By: #### POCGLUC #### [facility] [address] [place] [address] Dr. John Rodriguezutrophils/100 WBC (Bld)49.6 %Mqsfva67.0-75.0[facility] WestComment on above:Performed By: #### POCGLUC #### [facility] [address] [place] [address] Dr. John Thomaslet mean volume (Bld) [Entitic vol]9.7 fLNormal9.5-13.5The [facility] WestComment on above:Performed By: #### POCGLUC #### [facility] [address] [place] [address] Dr. John GoldenPLT70 103/ulCritically yhs900-575Yuo [facility] WestComment on above:Performed By: #### POCGLUC #### [facility] [address] [place] [address] Dr. John GoldenRBC3.25 106/ulCritically low4.20-5.40The [facility] Hospitalment on above:Performed By: #### POCGLUC #### [facility] [address] [place] [address] Dr. John GoldenWBC4.1 103/ulNormal4.0-11.0[facility] WestComment on above: Performed By: #### POCGLUC #### [facility] [address] [place] [address] Dr. John De La FuenteSO #0.0 103/ulNormal0.0-0.1The [facility] WestComment on above:Performed By: #### CBC #### [facility] [address] [place] [address] Dr. John De La Fuentesophils/100 WBC (Bld)0.4 %Normal0.2-2.0[facility] Comment on above:Performed By: #### CBC #### [facility] [address] [place] [address] Dr. John Meneses #0.0 103/ulNormal0.0-0.7The [facility] WestComment on above: Performed By: #### CBC #### [facility] [address] [place] [address] Dr. John Fowlerosinophils/100 WBC (Bld)0.6 %Critically low0.9-7.0The [facility] WestComment on above:Performed By: #### CBC #### [facility] [address] [place] [address] Dr. John Fowlerrythrocyte distribution width (RBC) [Ratio]13.4 %Uofffu30.0-15.0 [facility] WestComment on above:Performed By: #### CBC #### [facility] [address] [place] [address] Dr. John GoldenHematocrit (Bld) [Volume fraction]40.4 %Hptbtz00.0-48.0The [facility] WestComment on above:Performed By: #### CBC #### [facility] [address] [place] [address] Dr. John GoldenHemoglobin (Bld) [Mass/Vol]13.5 g/fUTkgait54.0-16.0The [facility] WestComment on above:Performed By: #### CBC #### [facility] [address] [place] [address] Dr. John Mcbride #0.02 10e3/ulNormal0.00-0.03The [facility] WestComment on above:Performed By: #### CBC #### [facility] [address] [place] [address] Dr. John Mcbride %0.4 %Normal0.0-0.5The [facility] WestComment on above: Performed By: #### CBC #### [facility] [address] [place] [address] Dr. Yilan ChangLYMPH #1.3 103/ulNormal1.2-3.8The [facility] WestComment on above:Performed By: #### CBC #### [facility] [address] [place] [address] Dr. John Sammphocytes/100 WBC (Bld)26.9 %Pgygby97.5-60.0The [facility] WestComment on above:Performed By: #### CBC #### [facility] [address] [place] [address] Dr. John Garcia DIFF REQNONormalThe [facility] WestComment on above: Performed By: #### CBC #### [facility] [address] [place] [address] Dr. John Henry (RBC) [Entitic mass]35.4 pgCritically high26.7-34.0The [facility] WestComment on above:Performed By: #### CBC #### [facility] [address] [place] [address] Dr. John Henry (RBC) [Mass/Vol]33.4 g/bZPznxyr71.9-35.2The [facility] WestComment on above:Performed By: #### CBC #### [facility] [address] [place] [address] Dr. John Jones (RBC) [Entitic vol]106.0 fLCritically high81.0-99.0The [facility] WestComment on above:Performed By: #### CBC #### [facility] [address] [place] [address] Dr. John Akins #0.4 103/ulNormal0.3-0.8The [facility] WestComment on above:Performed By: #### CBC #### [facility] [address] [place] [address] Dr. John Lazaroocytes/100 WBC (Bld)8.4 %Normal1.7-12.0The [facility] Comment on above:Performed By: #### CBC #### [facility] [address] [place] [address] Dr. Yilan ChangNEUT #2.9 103/ulNormal1.4-6.5The [facility] WestComment on above:Performed By: #### CBC #### [facility] [address] [place] [address] Dr. John Rodriguezutrophils/100 WBC (Bld)63.3 %Lozuhw84.0-75.0The [facility] WestComment on above:Performed By: #### CBC #### [facility] [address] [place] [address] Dr. John GoldenPlatelet mean volume (Bld) [Entitic vol]9.7 fLNormal9.5-13.5The [facility] WestComment on above:Performed By: #### CBC #### [facility] [address] [place] [address] Dr. John GoldenPLT83 103/ulCritically ako335-608Sxz [facility] WestComment on above:Performed By: #### CBC #### [facility] [address] [place] [address] Dr. John GoldenRBC3.81 106/ulCritically low4.20-5.40The [facility] WestComment on above:Performed By: #### CBC #### [facility] [address] [place] [address] Dr. John GoldenWBC4.6 103/ulNormal4.0-11.0The [facility] WestComment on above: Performed By: #### CBC #### [facility] [address] [place] [address] Dr. John GoldenCovid-19 PCR ([facility])on 68-11-5974TWAD-CoV-2 (COVID-19) RNA TOM+probe Ql (Unsp spec)Not detectedNormalNOT DETECTEDThe [facility] Comment on above:Result Comment: When diagnostic testing is negative, the [...] for this test is supported by the Psychological Aide of Health and Human Service's declaration that circumstances exist to justify the emergency use of in vitro diagnostics for the detection and/or diagnosis of the virus that causes COVID-19. This EUA will remain in effect for the duration of the COVID-19 declaration justifying emergency of IVDs, unless it is terminated or revoked by the FDA (after which the test may no longer be used).Performed By: #### CVDTBH #### [facility] [address] [place] [address] Dr. John GoldenDRUG SCREEN RAPID (URINE)on 61-21-1500ZFLRblgmyllNgmkyzNRQJUWAR [facility] HospitalComhen[facility] on above:Performed By: #### DRUGRPD #### [facility] [address] [place] [address] Dr. John GoldenBARNegativeNormalNEGATIVEOhiohealth Riverside Methodist HospitalComment on above: Performed By: #### DRUGRPD #### [facility] [address] [place] [address] Dr. John GoldenBUPNegativeNormalNEGATIVEOhiohealth Riverside Methodist HospitalComment on above: Performed By: #### DRUGRPD #### [facility] [address] [place] [address] Dr. John GoldenBZONegativeNormalNEGATIVEOhiohealth Riverside Methodist HospitalComment on above: Performed By: #### DRUGRPD #### [facility] [address] [place] [address] Dr. John GoldenCOCNegativeNormalNEGATIVEOhiohealth Riverside Methodist HospitalComment on above: Performed By: #### DRUGRPD #### [facility] [address] [place] [address] Dr. John RamírezMemorial HospitalComment on above: Result Comment: AMP (Amphetamine): 500ng/mL, BAR (Barbituates): 200 ng/mL, BZO (Benzodiazepines): 150 ng/mL, BUP (Buprenorphine): 10 ng/mL, MANSI (Cocaine): 150 ng/mL, mAMP (Methamphetamine): 500 ng/mL, MTD (Methadone): 200 ng/mL, OPI (Opiates): 100 ng/mL, OXY (Oxycodone): 100 ng/mL, PCP (Phencyclidine): 25 ng/mL, PPX (Propoxyphene): 300 ng/mL, THC (Cannabinoids): 50 ng/mL, TCA (Trycyclic Antidepressants): 300 ng/mLPerformed By: #### DRUGRPD #### [facility] [address] [place] [address] Dr. John GoldenDRUG CUT HEADERDRUG CLASS TEST SYSTEM CUT-OFF CONCENTRATIONS ARE FOLLOWS:NormalThe [facility] WestComment on above:Performed By: #### DRUGRPD #### [facility] [address] [place] [address] Dr. John GoldenmAMPNegativeNormalNEGATIVEOhiohealth Riverside Methodist HospitalComment on above: Performed By: #### DRUGRPD #### [facility] [address] [place] [address] Dr. John GoldenMTDNegativeNormalNEGATIVEOhiohealth Riverside Methodist HospitalComment on above: Performed By: #### DRUGRPD #### [facility] [address] [place] [address] Dr. John ByrneINegativeNormalNEGATIVEOhiohealth Riverside Methodist HospitalComment on above: Performed By: #### DRUGRPD #### [facility] [address] [place] [address] Dr. John GoldenOXYNegativeNormalNEGATIVEOhiohealth Riverside Methodist HospitalComment on above: Performed By: #### DRUGRPD #### [facility] [address] [place] [address] Dr. John GoldenPCPNegativeNormalNEGATIVEOhiohealth Riverside Methodist HospitalComment on above: Performed By: #### DRUGRPD #### [facility] [address] [place] [address] Dr. John GoldenPPXNegativeNormalNEGATIVEOhiohealth Riverside Methodist HospitalComment on above: Performed By: #### DRUGRPD #### [facility] [address] [address] Dr. John GoldenTCANegativeNormalNEGATIVEThe [facility] WestComment on above: Performed By: #### DRUGRPD #### [facility] [address] [address] [address] John CamposCNegativeNormalNEGATIVEThe [facility] WestComment on above: Performed By: #### DRUGRPD #### [facility] [address] [address] [address] John YanezANOL (BLD ALC)on 20-92-9758EZF NOTENOTE: 80 mg/dl is the legal limit for a blood alcohol levelNoAdena Health SystemComment on above: Performed By: #### POCGLUC #### [facility] [address] [place] [address] Dr. Lopez ChangEthanol [Mass/Vol]135 mg/dLNoAdena Health SystemComment on above:Performed By: #### POCGLUC #### [facility] [address] [place] [address] Dr. John RoCTATE/LACTIC ACIDon 84-06-1414Rysfpwf [Moles/Vol]2.3 mmol/L Critically high0.4-1.9The [facility]Com[facility] on above:Performed By: #### LACT #### [facility] [address] [place] [address] Dr. John GoldenLactate [Moles/Vol]2.2 mmol/LCritically high0.4-1.9The [facility]Com[facility] on above:Performed By: #### POCGLUC #### [facility] [address] [place] [address] Dr. John GoldenLactate [Moles/Vol]5.3 mmol/LCritically high0.4-1.9The [facility]Com[facility] on above:Performed By: #### LACT #### [facility] [address] [address] [address] John Moore 14(COMP METB)on 74-66-7451Ghbkskr [Mass/Vol]3.0 g/dL Critically low3.4-5.0The [facility] WestComment on above:Performed By: #### CMP, CMADM, BNP #### [facility] [address] [address] [address] John GoldenAlbumin/Globulin [Mass ratio]0.9 {ratio}NormalThe [facility] WestComment on above:Performed By: #### CMP, CMADM, BNP #### [facility] [address] [address] [address] John MejiaP [Catalytic activity/Vol]88 U/UNpglgy51-440Kfh [facility] WestComment on above:Performed By: #### CMP, CMADM, BNP #### [facility] [address] [place] [address] Dr. John MejiaT [Catalytic activity/Vol]76 U/LCritically ispq38-14Apa [facility] WestComment on above:Performed By: #### CMP, CMADM, BNP #### [facility] [address] [place] [address] Dr. John Rodriguez gap [Moles/Vol]12.8 mmol/LNormalThe [facility] Comment on above:Performed By: #### CMP, CMADM, BNP #### [facility] [address] [place] [address] Dr. John GoldenAST [Catalytic activity/Vol]72 U/LCritically dagf37-56Xfv [facility] WestComment on above:Performed By: #### CMP, CMADM, BNP #### [facility] [address] [place] [address] Dr. John GoldenBilirubin [Mass/Vol]0.4 mg/dLNormal0.2-1.0The [facility] Comment on above:Performed By: #### CMP, CMADM, BNP #### [facility] [address] [place] [address] Dr. John GoldenCalcium [Mass/Vol]7.3 mg/dLCritically low8.5-10.1The [facility] WestComment on above:Performed By: #### CMP, CMADM, BNP #### [facility] [address] [address] [address] John GoldenChloride [Moles/Vol]109 mmol/LCritically pdvf84-872Fwr [facility] Hospitalment on above:Performed By: #### CMP, CMADM, BNP #### [facility] [address] [address] [address] John GoldenCO2 [Moles/Vol]23.5 mmol/JYeikkz22.0-32.0The [facility] Comment on above:Performed By: #### CMP, CMADM, BNP #### [facility] [address] [address] [address] John GoldenCreatinine [Mass/Vol]0.52 mg/dLCritically low0.55-1.02The [facility] Hospitalment on above:Performed By: #### CMP, CMADM, BNP #### [facility] [address] [address] [address] John FowlerGFR-AF ARGENTINE>60Normal>=60The [facility] Hospitalment on above:Performed By: #### CMP, CMADM, BNP #### [facility] [address] [address] [address] John Osborn-NON AF ARGENTINE>60Normal>=60The [facility] Hospitalment on above:Performed By: #### CMP, CMADM, BNP #### [facility] [address] [address] [address] John GoldenGlobulin (S) [Mass/Vol]3.3 g/dLNormalThe [facility] WestComment on above:Performed By: #### CMP, CMADM, BNP #### [facility] [address] [address] [address] John GoldenGlucose [Mass/Vol]109 mg/dLCritically gjkw52-423Fdu [facility] Hospitalment on above:Performed By: #### CMP, CMADM, BNP #### [facility] [address] [address] [address] John GoldenPotassium [Moles/Vol]4.3 mmol/LNormal3.5-5.1The [facility] Comment on above:Performed By: #### CMP, CMADM, BNP #### [facility] [address] [address] [address] John GoldenProtein [Mass/Vol]6.3 g/dLCritically low6.4-8.2The [facility] WestComment on above:Performed By: #### CMP, CMADM, BNP #### [facility] [address] [address] [address] John GoldenSodium [Moles/Vol]141 mmol/ESjljxq020-233Eyr [facility] Comment on above:Performed By: #### CMP, CMADM, BNP #### [facility] [address] [address] [address] John GoldenUrea nitrogen [Mass/Vol]4.0 mg/dLCritically low7.0-18.0The [facility] WestComment on above:Performed By: #### CMP, CMADM, BNP #### [facility] [address] [place] [address] Dr. John Blackmon nitrogen/Creatinine [Mass ratio]7.7 mg/mgNormalThe [facility] WestComment on above:Performed By: #### CMP, CMADM, BNP #### [facility] [address] [place] [address] Dr. John GoldenAlbumin [Mass/Vol]3.7 g/dLNormal3.4-5.0[facility] Comment on above:Performed By: #### POCGLUC #### [facility] [address] [place] [address] Dr. John GoldenAlbumin/Globulin [Mass ratio]0.9 {ratio}NormalThe [facility] WestComment on above:Performed By: #### POCGLUC #### [facility] [address] [place] [address] Dr. John MejiaP [Catalytic activity/Vol]124 U/LCritically lwxb13-318Kgd [facility] WestComment on above:Performed By: #### POCGLUC #### [facility] [address] [address] [address] John MejiaT [Catalytic activity/Vol]94 U/LCritically ubvg77-61Rbq [facility] WestComment on above:Performed By: #### POCGLUC #### [facility] [address] [address] [address] John GoldenAnion gap [Moles/Vol]15.5 mmol/LNormalOhiohealth [facility] Comment on above:Performed By: #### POCGLUC #### [facility] [address] [address] [address] John GoldenAST [Catalytic activity/Vol]102 U/LCritically gqqp72-92Oxl [facility] WestComment on above:Performed By: #### POCGLUC #### [facility] [address] [address] [address] John GoldenBilirubin [Mass/Vol]0.6 mg/dLNormal0.2-1.0[facility] Comment on above:Performed By: #### POCGLUC #### [facility] [address] [place] [address] Dr. John GoldenCalcium [Mass/Vol]8.5 mg/dLNormal8.5-10.1[facility] Comment on above:Performed By: #### POCGLUC #### [facility] [address] [place] [address] Dr. John GoldenChloride [Moles/Vol]103 mmol/XGacjex16-604Ait [facility] Comment on above:Performed By: #### POCGLUC #### [facility] [address] [place] [address] Dr. John GoldenCO2 [Moles/Vol]23.5 mmol/YBevxxr72.0-32.0The [facility] Comment on above:Performed By: #### POCGLUC #### [facility] [address] [address] [address] John GoldenCreatinine [Mass/Vol]0.80 mg/dLNormal0.55-1.02The [facility] WestComment on above:Performed By: #### POCGLUC #### [facility] [address] [address] [address] John FowlerGFR-AF ARGENTINE>60Normal>=60The [facility] WestComment on above:Performed By: #### POCGLUC #### [facility] [address] [address] [address] John FowlerGFR-NON AF ARGENTINE>60Normal>=60The [facility] WestComment on above:Performed By: #### POCGLUC #### [facility] [address] [address] [address] John GoldenGlobulin (S) [Mass/Vol]3.9 g/dLNormalThe [facility] WestComment on above:Performed By: #### POCGLUC #### [facility] [address] [place] [address] Dr. John GoldenGlucose [Mass/Vol]155 mg/dLCritically mywk56-644Kfq [facility] WestComment on above:Performed By: #### POCGLUC #### [facility] [address] [address] [address] John GoldenPotassium [Moles/Vol]4.0 mmol/LNormal3.5-5.1The [facility] Comment on above:Performed By: #### POCGLUC #### [facility] [address] [place] [address] Dr. John GoldenProtein [Mass/Vol]7.6 g/dLNormal6.4-8.2[facility] Comment on above:Performed By: #### POCGLUC #### [facility] [address] [place] [address] Dr. John GoldenSodium [Moles/Vol]138 mmol/ZFqenah811-058Xnu [facility] Comment on above:Performed By: #### POCGLUC #### [facility] [address] [address] [address] John GoldenUrea nitrogen [Mass/Vol]4.0 mg/dLCritically low7.0-18.0The [facility] WestComment on above:Performed By: #### POCGLUC #### [facility] [address] [place], [place] [address] Dr. Jonh GoldenUrea nitrogen/Creatinine [Mass ratio]5.0 mg/mgNoAdena Health SystemComment on above:Performed By: #### POCGLUC #### [facility] [address] [place] [address] Dr. John GoldenSALICYLATEon 25-69-4185HTIMTHRXKC2.8 mg/dLNormal<=19.9The [facility] WestComment on above:Performed By: #### POCGLUC #### [facility] [address] [place] [address] Dr. John GoldenXR CHEST 1 Von 82-97-0095BR CHEST 1 VEXAMINATION: XR CHEST 1 V HISTORY: Overdose COMPARISON: None. TECHNIQUE: Portable chest FINDINGS: The lung parenchyma is free of consolidation or infiltrate. No pneumothorax or pleural effusion. The cardiac, mediastinal and hilar contours are normal. The visualized osseous structures exhibit no gross abnormality. IMPRESSION: Normal chest x-ray Electronically authenticated by: REJI TAYLOR Date: 2021-09-09 23:14[facility] CenterPOINT OF CARE GLUCOSEon 91-54-9511Hjrywim [Mass/Vol]143 mg/dL Critically bmnl49-240Kvk [facility] WestComment on above:Performed By: #### POCGLUC #### [facility] [address] [place] [address] Dr. John Golden Vital Signs Date TimeVital SignValuePerforming DhtorfiujVjmqnwbn28-10-6770 10:41-0400Body aktist815.6 Hunter Nieto MD Work Phone: [facility]06-21-2024 10:41-0400Body mass index (BMI) [Ratio]19.05 kg/j2ShgspChico Nieto MD Work Phone: [facility] CampusCollegeJobConnect [facility] AlmaBjmluf73-76-1361 10:41-0400Body japkqzwwiqf32.59 [degF]Chico Nieto MD Work Phone: [facility]06-21-2024 10:41-0400Body .52 kgChico Nieto MD Work Phone: [facility]06-21-2024 10:41-0400Diastolic blood defwuyjo23 mm[Hg]Chico Nieto MD Work Phone: [facility] [employer] Vvoenr20-35-2758 10:41-0400Heart rate 96 /minChico Nieto MD Work Phone: [facility] [employer] Ilhumw12-98-8509 10:41-0400 Respiratory rate16 /minChico Nieto MD Work Phone: [facility]06-21-2024 10:41-7111WzC0% (BldA) [Mass fraction]97 %Chico Nieto MD Work Phone: [facility] [employer] Urrdpg47-75-5289 10:41-0400Systolic blood ephrzeqa006 mm[Hg]Chico Nieto MD Work Phone: [place] [address] [employer] Mtekki77-29-0774 11:22-0500Body qyyyys319.6 Hunter Nieto MD Work Phone: [phone] [place] [address] [employer] Kcbent88-07-8230 11:22-0500Body mass index (BMI) [Ratio]19.21 kg/o6EameuChico Nieto MD Work Phone: [facility] [employer] Nxsdkp25-53-5675 11:22-0500Body cdwnydpnosa50.1 [degF]Chico Nieto MD Work Phone: [facility] [employer] Byfaaq80-03-9651 11:22-0500Body bmyrrl87.98 kgChico Nieto MD Work Phone: [facility] [employer] Pggoxc47-94-4768 11:22-0500Diastolic blood vplitkdt31 mm[Hg]Chico Nieto MD Work Phone: [facility] [employer] Oqywsu60-47-5271 11:22-0500Heart rate 89 /Padma Nieto MD Work Phone: [facility] [employer] Kxpmzk55-25-3774 11:22-0500 Respiratory rate16 /Padma Nieto MD Work Phone: [facility] AlmaQqojwb73-97-0095 11:8522XuM3% (BldA) [Mass fraction]99 %Chico Nieto MD Work Phone: [facility]02-16-2024 11:050Systolic blood mm[Hg]Chico Nieto MD Work Phone: [facility] Encounters Encounter DateEncounter TypeCare ProviderFacilityStart: 05-01-2024 End: 52-29-1467Hxxoqu outpatient visit 15 minutesChico Nieto MD Work Phone: [facility] - Medical OncologyComment on above:Thrombocytopenia (CMS-HCC) (Primary Dx); Abnormal mammogramStart: 04-30-2024 End: 75-52-6578ccbdgntqnyVBZHJWest Hills Hospitaltart: 04-30-2024 End: 14-82-2027woqdsgqwiyIRYXJWest Hills Hospitaltart: 02-20-2024 End: 79-67-3269Sroycfrst Result EncounterCorey Elizabeth DO Work Phone: noms External Department UnsolicitedStart: 02-20-2024 End: 91-59-6040Ccfqxwikt Result EncounterCorey Elizabeth DO Work Phone: noms External Department UnsolicitedStart: 09-14-2023 End: 12-45-8411uihvarlmdmVQPHACass County Health SystemComment on above: Thrombocytopenia (CMS-HCC) (Primary Dx)Start: 09-14-2023 End: 55-62-0004Exdure outpatient visit 25 minutesChico Nieto MD Work Phone: [facility]My[facility] - Medical OncologyComment on above:Thrombocytopenia (CMS-HCC) (Primary Dx)Start: 08-11-2023 End: 40-12-3327tlvioooidnCYLQT [facility] HospitalStart: 05-15-2023 [facility] Ambulatory PPGStart: 05-11-2023 End: 64-18-2667zqlbeqbrglJQWHQ [facility] CampusComment on above: Thrombocytopenia (CMS-HCC) (Primary Dx); Abnormality of both breasts on screening mammogram; Breast lesion on mammographyStart: 05-11-2023 End: 35-30-9005Dpwdon outpatient new 60 minutesChico Nieto MD Work Phone: [facility] - Medical OncologyComment on above:Abnormal mammogram (Primary Dx); Thrombocytopenia ([facility]-HCC)Start: 99-79-4456Zrvad abstractingChico Nieto MD Work Phone: [facility] - Medical OncologyStart: 03-21-2023 End: 64-11-8594Ftnbtuzfz Result EncounterCorey Elizabeth DO Work Phone: noms External Department UnsolicitedStart: 03-21-2023 End: 86-47-0201Jgpnyyntd Result EncounterCorey Elizabeth DO Work Phone: noms External Department UnsolicitedStart: 09-10-2021 End: 86-09-9287ovbaiumvwqWP NONE LISTED REQUESTFacility:H1 Procedures DateProcedureProcedure DetailPerforming ClinicianStart: 59-12-1596NA TOMOSYNTHESIS DIAGNOSTIC BICorey Elizabeth DO Work Phone: Start: 07-30-4862ND BREAST BI LIMITEDCorey Elizabeth DO Work Phone: Start: 52-53-8628Uxsudw-up visitFollow-upCHICO NIETO Start: 14-81-7101Viuuosufgl mammography computer-aided detcj biCorey Elizabeth DO Work Phone: Start: 34-60-5423SX BREAST BI LIMITEDCorey Elizabeth DO Work Phone: Start: 13-04-1137ATRMPUXJ LABSNot In System Ref Prov Plan of Treatment DateCare ActivityDetailAuthorStart: 96-36-1883Yvseo BMI ScreeningAdult BMI ScreeningProGreene Memorial Hospital SystemStart: 99-73-7772Frald BMI ScreeningAdult BMI ScreeningProGreene Memorial Hospital SystemStart: 05-01-2024 End: 25-23-8519Okeslxr encounter nfaqfohmp70/06/2025 10:00 AM EST Office Visit [facility] - Medical Oncology [address] [place] [address] [phone] Chico Nieto MD [address] [place] [address] [address] [facility] Medical OncologyStart: 04-28-2024 End: 39-39-1494KRX W Auto Differential panel - BloodCBC auto differential Lab Routine Thrombocytopenia ([facility]-HCC) Expected: 04/28/2024 (Approximate), Expires: 09/13/2024ProHighland District HospitalInventure Chemicals SystemComment on above:Expected: 04/28/2024 (Approximate), Expires: 09/13/2024Start: 12-15-2023 End: 71-81-8942HES W Auto Differential panel - BloodCBC auto differential Lab Routine Thrombocytopenia ([facility]-HCC) Expected: 12/15/2023 (Approximate), Expires: 09/13/2024[facility] Work Phone: Comment on above:Expected: 12/15/2023 (Approximate), Expires: 09/13/2024Start: 19-49-2274Jzsulhrom vaccinationInfluenza Vaccine [facility]tart: 07-20-2023 End: 22-43-5313Kixqjwp encounter ahnobmssy16/26/2024 11:00 AM EDT Office Visit [facility] Oncology [address] [place] [address] [phone] Chico Nieto MD [address] [place] [address] [address] [facility] Medical OncologyStart: 05-11-2023 End: 38-60-4343FT Breast - bilateral WO and W contrast IVMR bilateral breast with and without contrast with CAD Imaging Routine Abnormality of both breasts o n screening mammogram Breast lesion on mammography Expected: 05/11/2023, Expires: 05/11/2024[facility] SystemComment on above:Expected: 05/11/2023, Expires: 05/11/2024Start: 05-11-2023 End: 09-07-3266Gqduqvj encounter ffxgxbrde26/16/2024 11:30 AM EST Office Visit [facility] - Medical Oncology [address] [place] [phone] Chico Nieto MD [address] [place] [address] [address] [place] [address] [facility] - Medical OncologyStart: 04-44-9033Qnkpauthe vaccinationInfluenza VaccineBlanchard Valley Health System SystemStart: 78-54-9968Vstksabgeivmlp of varicella zoster vaccineZoster (Shingles) Vaccine (1 of 2)[facility]tart: 96-48-6716Acavsuoon for malignant neoplasm of cervixPap SmearProGreene Memorial Hospital SystemStart: 1986 DTaP,Tdap and Td Vaccines (1 - Tdap)DTaP,Tdap and Td Vaccines (1 - Tdap) [facility] [employer] SystemStart: 17-49-1730Dnhmn BMI ScreeningAdult BMI Screening [facility] [employer] [facility] Centertart: 53-26-1910Fhsbzcdwdr ScreeningDepression Screening [facility]tart: 61-85-4328Vtxtybi ScreeningTobacco Screening [facility] End: 92-02-5244TRE W Auto Differential panel - BloodCBC auto differential Lab Routine Thrombocytopenia (CMS-HCC) now and again in 3 months for 2 Occurrences starting 05/11/2023 until 3[facility] Work Phone: Comment on above:now and again in 3 months for 2 Occurrences starting 05/11/2023 until 05/10/2032 Payers DatePayer CategoryPayerPolicy ID2022Medicaid (Managed Care)[employer] [id number] 2022Medicaid [facility] MEDICA[facility] Member Subscriber Plan / Payer (Effective 2022-Present) Name: Aide Harry Relation to Subscriber: Self Name: Aide Harry Payer ID: [id number] ([facility]) Group ID: Not on file Type: Not on file Address: [address] [id number] 2018Medicaid [id number] 2..1.630053.3.57[id number] 2..1.571022.3.57[id number] 2..1.326778.3.57[id number] 2.0.1.929457.3.57[id number] 2..1.912159.3.57[id number] 2.0.1.193641.3.57[id number] 2.0.1.933407.3.57[id number] 2..840.1.867920.3.57[id number] 2.16.840.1.880063.3.57[id number] Social History DateTypeDetailFacilityTobacco smoking status NHISTobacco smoking consumption unknownFormerly [facility] Hospitaltart: 23-22-5665Tpcxfjp of Social function [facility]: 69-74-5132AytdqyorpXatJjbflv Health SystemStart: 74-75-1515SgsuhqitiZajetiyJCQT HealthcareStart: 20-96-7360Sry assigned at Not on fileFormerly [facility] Hospitaltart: 14-21-4622DjfMpvbwm (finding)[facility] Clinical Notes 05-11-2023 to 05-01-2024 Note Date & MsmvWfcqLndalpmv88-29-3563 History of Present illness Narrative* Chico Nieto MD - 05/01/2024 10:00 AM EST Images from the original note were not included. [facility] 05/01/24 Aide Harry is a 59 y.o. year old female seen today in the oncology clinic. No chief complaint on file. Tele-Oncology Telemedicine Consult Note Consent Statement: I discussed risks, benefits, and alternatives of a real-time synchronous audiovisual consultation with the patient (and any accompanying persons) including the risks that the patient's personal health details and medical records will be discussed over real-time, synchronous, interactive video/audio/telecommunication technology, the visit will not be recorded without the express consent of both the provider and the patient, and that there are some limitations compared to mifu-cs-zotb evaluations. We elected to proceed. History of Present Illness: Ms. Harry is a 59 y.o. female with history of alcoholism who has stop using alcohol about 4 months ago. In the past she has was straw symptoms with tremors seizures, this time she is doing well afterstopping alcohol for about 4 months. She is referred to Hematology for abnormal blood chemistry , in reviewing her records, I felt she has borderline platelet count with platelet count down to 110 in December 2022 and further down to 89 in February 2023. She denies any blood in the stool or urine. No unusual bleeding. Breast MRI 08/13/23 showed: Within the right breast there is a lobulated enhancing mass measuring 5 mm with central fat signal.In the retroareolar 9:00 right breast there is a 4 mm enhancing mass. Both of these masses demonstrate STIR and T1 hyperintensity with central vascularity, compatible with intramammary lymph nodes. These findings are consistent with the previous mammogram and ultrasound findings. There are no suspicious enhancing lesions and no significant axillary or internal mammary lymphadenopathy. The skin, nipples and chest wall are unremarkable. IMPRESSION: Normal examination. No evidence for breast cancer or other significant finding. Bilateral intramammary lymph nodes consistent with prior imaging. Interval history: The patient tells me that she has been cutting down her alcohol intake but she did not tell me the actual amount. No significant nausea or vomiting. No significant bruising or bleeding. She has family history of breast cancer. She underwent mammogram evaluation again January 2024. No new breast issues. No past medical history on file. No past surgical history on file. Family History Problem Relation Age of Onset Breast cancer Cousin 50 Breast cancer Cousin 58 Social History Socioeconomic History Marital status: No Known Allergies Medication List Accurate as of May 01, 2024 10:15 AM. If you have any questions, ask your nurse or doctor. Medications Continued This Visit cholecalciferol (vitamin D3) 2,000 units capsule Refills: 0 Dose: 2,000 Units nabumetone 750 mg tablet Refills: 0 Dose: 750 mg Commonly known as: RELAFEN omeprazole 40 mg capsule Refills: 0 Dose: 40 mg Commonly known as: PriLOSEC ondansetron ODT 4 mg disintegrating tablet Refills: 0 Dose: 4 mg Commonly known as: ZOFRAN ODT Review of Symptoms: Review of Systems ECO- Symptomatic; fully ambulatory Physical Exam: General: Well appearing, in no acute distress. Vitals: There were no vitals taken for this visit. There is no height or weight on file to calculate BMI. Eyes: No icterus, no conjuctival erythema Physical exam: Awake alert and oriented sclera was anicteric. Respirations nonlabored. There was nostridor. Lungs reveal crackles. Cardiac exam revealed regular rate and rhythm S1-S2 and no murmurs.Abdomen soft nontender. Extremity exam revealed trace edema around the ankles. Skin exam revealed no rashes. Patient was afebrile. Mood was appropriate and not depressed. Recent Imaging: No results found. Recent Labs: Recent Results (from the past 2 weeks) CBC auto differential Collection Time: 04/30/24 4:18 PM Result Value Ref Range White Blood Cells 5.7 4.0 - 11.0 X10E9/L RBC count 4.31 3.80 - 5.20 X10E12/L Hemoglobin 15.7 (H) 11.7 - 15.5 g/dL Hematocrit 44.9 35 - 47 % MCV 104 (H) 80 - 100 fL MCH 36.4 (H) 27 - 34 pg MCHC 34.9 32 - 36 g/dL RDW 13.5 11.5 - 15.0 % Platelets 158 150 - 450 X10E9/L MPV 8.5 7 - 12 fL % neutrophils 42.2 % % lymphocytes 46.4 % % monocytes 8.3 % % eosinophils 0.4 % % Basophils 2.7 % Neutrophils Absolute (A) 2.4 1.5 - 6.6 X10E9/L Lymphocytes Absolute 2.6 1.0 - 3.5 X10E9/L Monocytes Absolute 0.5 0 - 0.9 X10E9/L Eosinophils Absolute 0.0 0.0 - 0.4 X10E9/L Basophils Absolute 0.2 0.0 - 0.2 X10E9/L Diagnosis Problem list: Problem List Items Addressed This Visit None Impression: Thrombocytopenia Abnormal mammogram Plan: I reviewed the patient's blood work over the past 6 months. Her WBC and hemoglobins are within normal range. Platelet count is borderline ranges between 80-110K. Differential diagnosis for thrombocytopenia could be hypersplenism related to liver disease and alcoholism, autoimmune process. Elective repeat her CBC again for close monitoring. Patient's mammogram from outside hospital reviewed: RIGHT BREAST: Spot magnification views demonstrate persistence of the small partially circumscribed mass within lower midline breast. Ultrasound evaluation demonstrates a 7 x 4 x 4 mm lobular lesion with central fatty hilum at the 6 o'clock position 2.1 cm from the nipple suspected represent a lymph node. Follow-up mammography and ultrasound evaluation in 6 months is recommended to document stability and to help establish baseline. LEFT BREAST: Spot magnification views demonstrate persistence of a 5 mm partially circumscribed mass within the anterior breast 9 o'clock position. Ultrasound evaluation demonstrates a small mass versus lymph node at the 9 o'clock position 1.2 cm from the nipple, 4 x 3 x 2 millimeters. Follow-up mammography and ultrasound evaluation in 6 months is recommended. Breast MRI 08/13/23 reviewed, overall normal results. Bilateral mammogram 01/2024 at [facility] is unremarkable. The patient's most recent blood counts 09/13/23 from [facility] showed platelet count is downto 50,000. Hemoglobin and white counts are normal, I suspect her thrombocytopenia is due to alcohol intoxication. After cutting down alcohol intake her CBC March 2024 showed normal platelet count number up to 158 K. The patient will continue to follow-up with PCP and return to Hematology as needed. Thank you. Chico Nieto MD Please note that portions of this note were generated using voice recognition [employer] dictation software. Although every effort was made to ensure the accuracy of this automated egg processing supervisor, some errors in egg processing supervisor may have occurred. CC: Patient Care Team: ALEXANDER Fox as Referring Physician (Family Medicine) PCP:No primary care provider on file. Referring MD: Chico Nieto MD documented [facility] encounter[facility] Instructions* Patient Instructions* Chico Nieto MD - 05/01/2024 10:00 AM EST Prn documented in this encounterRegency [facility]06-21-2024 History of Present illness Narrative* Kathleen Garcia RN - 09/14/2023 10:58 AM EDT Patient is here for follow up with Dr. Nieto. Orders received to Repeat CBC in 3 months, print out order. F/u in 04/2024, CBC again. Patient given calendar, verbalized understanding of future appointments. documented in this encounterRegency Hospital Company06-21-2024 History of Present illness Narrative* Chico Nieto MD - 09/14/2023 10:30 AM EDT Images from the original note were not included. [facility] 09/14/23 Aide Harry is a 58 y.o. year old female seen today in the oncology clinic. Chief Complaint Patient presents with Follow-up History of Present Illness: Ms. Harry is a 58 y.o. female with history of alcoholism who has stop using alcohol about 4 months ago. In the past she has was straw symptoms with tremors seizures, this time she is doing well afterstopping alcohol for about 4 months. She is referred to Hematology for abnormal blood chemistry , in reviewing her records, I felt she has borderline platelet count with platelet count down to 110 in December 2022 and further down to 89 in February 2023. She denies any blood in the stool or urine. No unusual bleeding. Breast MRI 08/13/23 showed: Within the right breast there is a lobulated enhancing mass measuring 5 mm with central fat signal.In the retroareolar 9:00 right breast there is a 4 mm enhancing mass. Both of these masses demonstrate STIR and T1 hyperintensity with central vascularity, compatible with intramammary lymph nodes. These findings are consistent with the previous mammogram and ultrasound findings. There are no suspicious enhancing lesions and no significant axillary or internal mammary lymphadenopathy. The skin, nipples and chest wall are unremarkable. IMPRESSION: Normal examination. No evidence for breast cancer or other significant finding. Bilateral intramammary lymph nodes consistent with prior imaging. Interval history: The patient told me she recently started to drink again, usually 6 packs of beer a day. No significant nausea or vomiting. No significant bruising or bleeding. She has family history of breast cancer. No past medical history on file. No past surgical history on file. Family History Problem Relation Age of Onset Breast cancer Cousin 50 Breast cancer Cousin 58 Social History Socioeconomic History Marital status: No Known Allergies Medication List Accurate as of September 14, 2023 11:15 AM. If you have any questions, ask your nurse or doctor. Medications Continued This Visit cholecalciferol (vitamin D3) 2,000 units capsule Refills: 0 Dose: 2,000 Units nabumetone 750 mg tablet Refills: 0 Dose: 750 mg Commonly known as: RELAFEN omeprazole 40 mg capsule Refills: 0 Dose: 40 mg Commonly known as: PriLOSEC ondansetron ODT 4 mg disintegrating tablet Refills: 0 Dose: 4 mg Commonly known as: ZOFRAN ODT Review of Symptoms: Review of Systems ECO- Symptomatic; fully ambulatory Physical Exam: General: Well appearing, in no acute distress. Vitals: BP 137/87 Pulse 96 Temp 36.4 C (97.6 F) (Oral) Resp 16 Ht 167.6 cm (5' 5.98 ) Wt 53.5 kg (118 lb) SpO2 97% BMI 19.05 kg/m Body mass index is 19.05 kg/m . Eyes: No icterus, no conjuctival erythema ENT: Pharyngeal mucosa was moist without exudate and inflammation or ulcerations. Tongue was midline and appeared normal.Gums were unremarkable. Lymph nodes: No palpable adenopathy Neck: Supple. There were no masses, tenderness. Trachea was midline. Respiratory: Respirations were non-labored. Lungs were clear to auscultation. There was no dullnessto percussion. Cardiac: Regular rate and rhythm, S1 and S2 sounds were normal. There were no rubs or gallops. Abdomen: Soft, non-tender, Nondistended. Bowel sounds audible in all four quadrants. There were no palpable masses. The liver and spleen were not enlarged. Extremities: There was no clubbing, Cyanosis, edema. Skin: There was no obvious rashes, bruising or ecchymosis. Back exam: No palpable tenderness was appreciated. Neurologic: There was no unilateral weakness. Mood and affect: Normal. Recent Imaging: No results found. Recent Labs: No results found for this or any previous visit (from the past 336 hour(s)). Diagnosis Problem list: Problem List Items Addressed This Visit Hematopoietic and Hemostatic Thrombocytopenia (CMS-HCC) - Primary Impression: Thrombocytopenia Abnormal mammogram Plan: I reviewed the patient's blood work over the past 6 months. Her WBC and hemoglobins are within normal range. Platelet count is borderline ranges between 80-110K. Differential diagnosis for thrombocytopenia could be hypersplenism related to liver disease and alcoholism, autoimmune process. Elective repeat her CBC again for close monitoring. Patient's mammogram from outside hospital reviewed: RIGHT BREAST: Spot magnification views demonstrate persistence of the small partially circumscribed mass within lower midline breast. Ultrasound evaluation demonstrates a 7 x 4 x 4 mm lobular lesion with central fatty hilum at the 6 o'clock position 2.1 cm from the nipple suspected represent a lymph node. Follow-up mammography and ultrasound evaluation in 6 months is recommended to document stability and to help establish baseline. LEFT BREAST: Spot magnification views demonstrate persistence of a 5 mm partially circumscribed mass within the anterior breast 9 o'clock position. Ultrasound evaluation demonstrates a small mass versus lymph node at the 9 o'clock position 1.2 cm from the nipple, 4 x 3 x 2 millimeters. Follow-up mammography and ultrasound evaluation in 6 months is recommended. Breast MRI 08/13/23 reviewed, overall normal results. The patient's most recent blood counts 09/13/23 from [facility] showed platelet count is downto 50,000. Hemoglobin and white counts are normal, I suspect her thrombocytopenia is due to alcohol intoxication. Advise patient cut down alcohol intake. Monitor CBC again in 3 months and follow-up with me in 1 year. Thank you. Chico Nieto MD Please note that portions of this note were generated using voice recognition [employer] dictation software. Although every effort was made to ensure the accuracy of this automated egg processing supervisor, some errors in egg processing supervisor may have occurred. CC: Patient Care Team: Chico Nieto MD as Consulting Physician (Hematology) ALEXANDER Fox as Referring Physician (Family Medicine) PCP:No primary care provider on file. Referring MD: Chico Nieto MD documented in this encounterWayne HealthCare Main CampusCollegeJobConnect [facility] [id number] Instructions* Patient Instructions* Chico Nieto MD - 09/14/2023 10:30 AM EDT Repeat CBC in 3 months, print out order. F/u in 04/2024, CBC again. documented in this encounterWayne HealthCare Main CampusCollegeJobConnect [facility] [id number] History of Present illness Narrative* Kathleen Garcia RN - 05/11/2023 11:54 AM EST CBC with diff now and then in 3 months 07/2023. F/u in 06/2023. Breast MRI ordered for abnormal mammogram to be done at [facility] Patient will call to get scheduled. Patient given calendar, verbalized understanding of future appointments. documented in this encounterRegency Hospital Company02-16-2024 History of Present illness Narrative* Chico Nieto MD - 05/11/2023 11:30 AM EST Images from the original note were not included. [facility] 05/11/23 Aide Harry is a 58 y.o. year old female seen today in the oncology clinic. Chief Complaint Patient presents with Abnormal Blood Chemisrty Consult History of Present Illness: Ms. Harry is a 58 y.o. female with history of alcoholism who has stop using alcohol about 4 months ago. In the past she has was straw symptoms with tremors seizures, this time she is doing well afterstopping alcohol for about 4 months. She is referred to Hematology for abnormal blood chemistry , in reviewing her records, I felt she has borderline platelet count with platelet count down to 110 in December 2022 and further down to 89 in February 2023. She denies any blood in the stool or urine. No unusual bleeding. The patient also mentioned that she had a abnormal mammogram in February. She has family history ofbreast cancer. No past medical history on file. No past surgical history on file. No family history on file. Social History Socioeconomic History Marital status: Spouse name: Not on file Number of children: Not on file Years of education: Not on file Highest education level: Not on file Occupational History Not on file Tobacco Use Smoking status: Not on file Smokeless tobacco: Not on file Substance and Sexual Activity Alcohol use: Not on file Drug use: Not on file Sexual activity: Not on file Other Topics Concern Not on file Social History Narrative Not on file Social Determinants of Health Financial Resource Strain: Not on file Food Insecurity: Not on file Transportation Needs: Not on file Physical Activity: Not on file Stress: Not on file Social Connections: Not on file Interpersonal Safety: Not on file Housing Instability: Not on file Not on File Medication List Accurate as of May 11, 2023 12:23 PM. If you have any questions, ask your nurse or doctor. Medications Continued This Visit cholecalciferol (vitamin D3) 2,000 units capsule Refills: 0 Dose: 2,000 Units nabumetone 750 mg tablet Refills: 0 Dose: 750 mg Commonly known as: RELAFEN omeprazole 40 mg capsule Refills: 0 Dose: 40 mg Commonly known as: PriLOSEC ondansetron ODT 4 mg disintegrating tablet Refills: 0 Dose: 4 mg Commonly known as: ZOFRAN ODT Review of Symptoms: Review of Systems ECO- Symptomatic; fully ambulatory Physical Exam: General: Well appearing, in no acute distress. Vitals: BP (!) 135/92 Pulse 89 Temp 36.7 C (98.1 F) (Oral) Resp 16 Ht 167.6 cm (5' 6 ) Wt54 kg (119 lb) SpO2 99% BMI 19.21 kg/m Body mass index is 19.21 kg/m . Eyes: No icterus, no conjuctival erythema ENT: Pharyngeal mucosa was moist without exudate and inflammation or ulcerations. Tongue was midline and appeared normal.Gums were unremarkable. Lymph nodes: No palpable adenopathy Neck: Supple. There were no masses, tenderness. Trachea was midline. Respiratory: Respirations were non-labored. Lungs were clear to auscultation. There was no dullnessto percussion. Cardiac: Regular rate and rhythm, S1 and S2 sounds were normal. There were no rubs or gallops. Abdomen: Soft, non-tender, Nondistended. Bowel sounds audible in all four quadrants. There were no palpable masses. The liver and spleen were not enlarged. Extremities: There was no clubbing, Cyanosis, edema. Skin: There was no obvious rashes, bruising or ecchymosis. Back exam: No palpable tenderness was appreciated. Neurologic: There was no unilateral weakness. Mood and affect: Normal. Recent Imaging: No results found. Recent Labs: No results found for this or any previous visit (from the past 336 hour(s)). Diagnosis Problem list: Problem List Items Addressed This Visit Hematopoietic and Hemostatic Thrombocytopenia (CMS-HCC) Other Abnormal mammogram - Primary Impression: Thrombocytopenia Abnormal mammogram Plan: I reviewed the patient's blood work over the past 6 months. Her WBC and hemoglobins are within normal range. Platelet count is borderline ranges between 80-110K. Differential diagnosis for thrombocytopenia could be hypersplenism related to liver disease and alcoholism, autoimmune process. Elective repeat her CBC again for close monitoring. Patient's mammogram from outside hospital reviewed: RIGHT BREAST: Spot magnification views demonstrate persistence of the small partially circumscribed mass within lower midline breast. Ultrasound evaluation demonstrates a 7 x 4 x 4 mm lobular lesion with central fatty hilum at the 6 o'clock position 2.1 cm from the nipple suspected represent a lymph node. Follow-up mammography and ultrasound evaluation in 6 months is recommended to document stability and to help establish baseline. LEFT BREAST: Spot magnification views demonstrate persistence of a 5 mm partially circumscribed mass within the anterior breast 9 o'clock position. Ultrasound evaluation demonstrates a small mass versus lymph node at the 9 o'clock position 1.2 cm from the nipple, 4 x 3 x 2 millimeters. Follow-up mammography and ultrasound evaluation in 6 months is recommended. I recommend a bilateral breast MRI for further evaluation. Biopsy suspicious lesion if needed. I will see her back in June for follow-up. Thank you. Chico Nieto MD Please note that portions of this note were generated using voice recognition [employer] dictation software. Although every effort was made to ensure the accuracy of this automated egg processing supervisor, some errors in egg processing supervisor may have occurred. CC: Patient Care Team: Chico Nieto MD as Consulting Physician (Hematology) ALEXANDER Fox as Referring Physician (Family Medicine) PCP:No primary care provider on file. Referring MD: Imelda Randolph APRN-* documented in this encounterRegency Hospital Company02-16-2024 Instructions* Patient Instructions* Chico Nieto MD - 05/11/2023 11:30 AM EST CBC with diff now and then in 3 months 07/2023. F/u in 08/2023. Print out order. documented in this encounterRegency Hospital CompanyEvaluation note* Diagnosis Thrombocytopenia (CMS-HCC)- Primary Unspecified thrombocytopenia Abnormal mammogram Abnormal mammogram, unspecified documented [facility] encounter [facility]* Diagnosis Thrombocytopenia (CMS-HCC)- Primary Unspecified thrombocytopenia documented in this encounter [facility]* Diagnosis Thrombocytopenia (CMS-HCC)- Primary Unspecified thrombocytopenia documented in this encounter [facility] note* Diagnosis Abnormal mammogram- Primary Abnormal mammogram, unspecified Thrombocytopenia (CMS-HCC) Unspecified thrombocytopenia documented in this encounter [facility]* Diagnosis Thrombocytopenia (CMS-HCC)- Primary Unspecified thrombocytopenia Abnormality of both breasts on screening mammogram Breast lesion on mammography documented in this encounter [facility] SystemInstructionsNot on filedocumented in this encounter [facility] SystemInstructionsNot on filedocumented in this encounter [facility] SystemInstructionsNot on filedocumented in this encounter [facility] Summary Purpose Family History No Family History Records FoundNo Family History Records FoundNo Family History Records FoundNo Family History Records Found Advance Directives No Advanced Directives Records FoundNo Advanced Directives Records FoundNo Advanced Directives Records FoundNo Advanced Directives Records Found Reason for Referral SpecialtyDiagnoses / ProceduresReferred By ContactReferred To ContactRadiology Diagnoses Abnormality of both breasts on screening mammogram Breast lesion on mammography Procedures MR bilateral breast with and without contrast with CAD Chico Nieto MD [id number] [facility] [address] [place] [address] Referral IDStatusReasonStart DateExpiration DateVisits RequestedVisits [id number] Review/ Additional Source Comments INFORMATION SOURCE (unrecogn ized section and content) DATE CREATED AUTHOR 09/15/2021 [facility] DATE CREATED AUTHOR AUTHOR'S ORGANIZ ATION 05/16/2023 [facility] DATE CREATED AUTHOR AUTHOR'S ORGANIZ ATION 08/13/2023 [facility] DATE CREATED AUTHOR AUTHOR'S ORGANIZ ATION 05/02/2024 [facility] Reason for Visit (unrecogniz ed section and content) ReasonCommentsFollow-upReasonCommentsAbnormal Blood ChemisrtyConsult FOR RECORDS PERTAINING TO PATIENTS WHO ARE [...] BE BASED ON THE PRIMARY CLINICAL RECORDS. [facility]. provides no warranty or guarantee of the accuracy or completeness of information in this document.
== END 2025-02-10 09:40 | disposition home or self-care (01) ==
LOC: RAD 09:39
PROVIDERS: PCP Nurse Practitioner Family; Visit Provider Nurse Practitioner Family
DX: M81.0 Age-related osteoporosis without current pathological fracture (principal); M85.88 Other specified disorders of bone density and structure, other site
CPT/HCPCS: 77080